=== PATIENT | female | born 1995 | race Caucasian/White ===

== ENCOUNTER 2017-02-08 15:45 | Emergency (ER) | payer OTHER ==
[~2017-02-08] VITALS: Ht 165.1 cm; Wt 118.1 kg
[~2017-02-08 15:45] MED LIST: ACET50TA PO; DOCU10CA PO; IBUP80TA PO; MOM30SS PO; VITAPRTA PO
[2017-02-08 17:45] VITALS: BP 130/69
== END 2017-02-08 17:49 | disposition home or self-care (01) ==
LOC: M ED 15:45
DX: G62.9 Polyneuropathy, unspecified (principal); R20.2 Paresthesia of skin; F41.9 Anxiety disorder, unspecified; F32.9 Major depressive disorder, single episode, unspecified; Z87.891 Personal history of nicotine dependence; Z79.899 Other long term (current) drug therapy; Z88.0 Allergy status to penicillin; Z91.040 Latex allergy status

== ENCOUNTER → 2017-06-14 | Outpatient (CLI) | payer OTHER ==
[2017-06-14 15:27] LABS: ALBUMIN 3.8 GM/DL (3.2-5.2); ALBUMIN/GLOBULIN RATIO 1.09 (1.00-1.93); ALKALINE PHOSPHATASE 105 U/L (45-117); ALT/SGPT 21 U/L (12-78); ANION GAP 4 MEQ/L (8-16); AST/SGOT 13 U/L (7-37); BILIRUBIN,TOTAL 0.4 MG/DL (0.2-1.0); BLOOD UREA NITROGEN 8 MG/DL (7-18); CALCIUM LEVEL 8.9 MG/DL (8.5-10.1); CARBON DIOXIDE LEVEL 30 MEQ/L (21-32); CHLORIDE LEVEL 107 MEQ/L (98-107); GLOMERULAR FILTRATION RATE > 60.0 (>60); GLUCOSE, FASTING 86 MG/DL (70-105); POTASSIUM SERUM 4.1 MEQ/L (3.5-5.1); SODIUM LEVEL 141 MEQ/L (136-145); TOTAL PROTEIN 7.3 GM/DL (6.4-8.2)
== END ==
LOC: M LAB 14:13
PROVIDERS: ATTEND Nurse Practitioner Adult Health
DX: Z13.9 Encounter for screening, unspecified (principal)

== ENCOUNTER 2017-08-14 16:26 | Emergency (ER) | payer OTHER ==
[2017-08-14 18:34] LABS: KETONE, URINE AUTO RFX TRACE mg/dL (NEGATIVE); MUCUS, URINE RFX LARGE (NEGATIVE); NITRITE, URINE AUTO RFX NEGATIVE (NEGATIVE); RBC, URINE AUTO RFX 4 /HPF (0-3); SPECIFIC GRAVITY UR AUTO RFX 1.032 (1.002-1.035); SQUAM EPITHELIAL CELL UR AURFX 2 /HPF (0-6); WBC, URINE AUTO RFX 3 /HPF (0-3)
[2017-08-14 18:39] LABS: BASO % 0.5 % (0.0-1.0); EOS # 0.1 10^3/uL (0.0-0.50); EOS % 0.6 % (0.0-3.0); HEMATOCRIT 40.2 % (36.0-47.0); HEMOGLOBIN 13.3 g/dl (12.0-16.0); IMMATURE GRANULOCYTE % 0.3 % (0-0); LEUKOCYTE ESTERASE UR AUTO RFX 1+ (NEGATIVE); LYMPH # 2.2 10^3/uL (1.5-6.5); LYMPH % 27.2 % (24.0-44.0); MEAN CORPUSCULAR HEMOGLOBIN 29.9 pg (27.0-33.0); MEAN CORPUSCULAR HGB CONC 33.1 g/dl (32.0-36.5); MEAN CORPUSCULAR VOLUME 90.3 fl (80.0-96.0); MONO # 0.5 10^3/uL (0.0-0.8); MONO % 6.5 % (0.0-5.0); NEUTROPHILS # 5.1 10^3/uL (1.8-7.7); NEUTROPHILS % 64.9 % (36.0-66.0); PLATELET COUNT, AUTOMATED 316 10^3/uL (150-450); RED BLOOD COUNT 4.45 10^6/uL (4.00-5.40); RED CELL DISTRIBUTION WIDTH 12.1 % (11.5-14.5); WHITE BLOOD COUNT 7.9 10^3/uL (4.0-10.0)
[2017-08-14 18:44] LABS: HCG, SERUM QUANTITATIVE 117 MIU/ML
== END 2017-08-14 19:20 | disposition home or self-care (01) ==
LOC: M ED 16:26
DX: O26.891 Other specified pregnancy related conditions, first trimester (principal); Z3A.00 Weeks of gestation of pregnancy not specified; Z88.0 Allergy status to penicillin; Z91.040 Latex allergy status
CPT/HCPCS: 84702

== ENCOUNTER → 2017-08-16 | Outpatient (CLI) | payer OTHER ==
[2017-08-16 16:38] LABS: HCG, SERUM QUANTITATIVE 249 MIU/ML
== END ==
LOC: M LAB 15:38
DX: R10.2 Pelvic and perineal pain (principal)
CPT/HCPCS: 84702

== ENCOUNTER 2017-08-18 04:39 | Emergency (ER) | payer OTHER ==
[2017-08-18] MEDS: NS 1,000 ML IV (05:30)
[2017-08-18 05:35] LABS: BASO % 0.4 % (0.0-1.0); EOS % 0.6 % (0.0-3.0); HEMATOCRIT 35.3 % (36.0-47.0); HEMOGLOBIN 11.8 g/dl (12.0-16.0); IMMATURE GRANULOCYTE % 0.3 % (0-0); LYMPH # 2.2 10^3/uL (1.5-6.5); MEAN CORPUSCULAR HEMOGLOBIN 29.8 pg (27.0-33.0); MEAN CORPUSCULAR HGB CONC 33.4 g/dl (32.0-36.5); MEAN CORPUSCULAR VOLUME 89.1 fl (80.0-96.0); MONO # 0.6 10^3/uL (0.0-0.8); MONO % 8.9 % (0.0-5.0); NEUTROPHILS # 4.1 10^3/uL (1.8-7.7); NEUTROPHILS % 58.8 % (36.0-66.0); PLATELET COUNT, AUTOMATED 271 10^3/uL (150-450); RED BLOOD COUNT 3.96 10^6/uL (4.00-5.40); RED CELL DISTRIBUTION WIDTH 12.2 % (11.5-14.5)
[2017-08-18 05:49] LABS: KETONE, URINE AUTO RFX NEGATIVE (NEGATIVE); MUCUS, URINE RFX SMALL (NEGATIVE); NITRITE, URINE AUTO RFX NEGATIVE (NEGATIVE); RBC, URINE AUTO RFX 2 /HPF (0-3); SPECIFIC GRAVITY UR AUTO RFX 1.024 (1.002-1.035); SQUAM EPITHELIAL CELL UR AURFX 1 /HPF (0-6); WBC, URINE AUTO RFX 2 /HPF (0-3)
[2017-08-18 05:50] LABS: LEUKOCYTE ESTERASE UR AUTO RFX TRACE (NEGATIVE)
[2017-08-18 06:00] LABS: HCG, SERUM QUANTITATIVE 516 MIU/ML
[2017-08-18 06:00] LABS: ALBUMIN 3.7 GM/DL (3.2-5.2); ALBUMIN/GLOBULIN RATIO 1.19 (1.00-1.93); ALKALINE PHOSPHATASE 88 U/L (45-117); ALT/SGPT 16 U/L (12-78); ANION GAP 7 MEQ/L (8-16); AST/SGOT 13 U/L (7-37); BILIRUBIN,DIRECT < 0.1 MG/DL (0.0-0.2); BILIRUBIN,TOTAL 0.2 MG/DL (0.2-1.0); BLOOD UREA NITROGEN 12 MG/DL (7-18); CALCIUM LEVEL 8.4 MG/DL (8.5-10.1); CARBON DIOXIDE LEVEL 26 MEQ/L (21-32); CHLORIDE LEVEL 108 MEQ/L (98-107); CREATININE FOR GFR 0.61 MG/DL (0.55-1.02); GLOMERULAR FILTRATION RATE > 60.0 (>60); GLUCOSE, FASTING 96 MG/DL (70-105); LIPASE 196 U/L (73-393); POTASSIUM SERUM 3.7 MEQ/L (3.5-5.1); SODIUM LEVEL 141 MEQ/L (136-145); TOTAL PROTEIN 6.8 GM/DL (6.4-8.2)
== END 2017-08-18 08:12 | disposition home or self-care (01) ==
LOC: M ED 04:39
DX: O99.89 Other specified diseases and conditions complicating pregnancy, childbirth and the puerperium (principal); R10.9 Unspecified abdominal pain; R11.0 Nausea; Z91.040 Latex allergy status; Z88.0 Allergy status to penicillin; Z3A.01 Less than 8 weeks gestation of pregnancy
CPT/HCPCS: 76700

== ENCOUNTER → 2017-08-23 | Outpatient (CLI) | payer OTHER ==
[2017-08-23 20:04] LABS: HCG, SERUM QUANTITATIVE 3382 MIU/ML
== END ==
LOC: M SMT 11:25
DX: R10.32 Left lower quadrant pain (principal)
CPT/HCPCS: 84702

== ENCOUNTER → 2017-08-25 | Outpatient (CLI) | payer OTHER ==
[2017-08-25 20:15] LABS: HCG, SERUM QUANTITATIVE 6485 MIU/ML
== END ==
LOC: M SMT 11:20
DX: R10.32 Left lower quadrant pain (principal)
CPT/HCPCS: 84702

== ENCOUNTER → 2017-10-11 | Outpatient (CLI) | payer OTHER ==
[2017-10-11 17:48] LABS: BASO % 0.5 % (0.0-1.0); EOS % 0.5 % (0.0-3.0); HEMATOCRIT 37.6 % (36.0-47.0); HEMOGLOBIN 12.7 g/dl (12.0-16.0); IMMATURE GRANULOCYTE % 0.5 % (0-3.0); LYMPH # 1.7 10^3/uL (1.5-6.5); LYMPH % 25.7 % (24.0-44.0); MEAN CORPUSCULAR HGB CONC 33.8 g/dl (32.0-36.5); MEAN CORPUSCULAR VOLUME 88.9 fl (80.0-96.0); MONO # 0.4 10^3/uL (0.0-0.8); MONO % 6.3 % (0.0-5.0); NEUTROPHILS # 4.3 10^3/uL (1.8-7.7); NEUTROPHILS % 66.5 % (36.0-66.0); PLATELET COUNT, AUTOMATED 250 10^3/uL (150-450); RED BLOOD COUNT 4.23 10^6/uL (4.00-5.40); RED CELL DISTRIBUTION WIDTH 12.1 % (11.5-14.5); WHITE BLOOD COUNT 6.5 10^3/uL (4.0-10.0)
[2017-10-11 22:19] LABS: CHLAMYDIA DNA AMPLIFICATION NEGATIVE (NEGATIVE); GC DNA AMPLIFICATION NEGATIVE (NEGATIVE)
[2017-10-13 09:29] LABS: RUBELLA IgG QUALITATIVE IMMUNE (IMMUNE)
[2017-10-13 09:38] LABS: HBsAg Prenatal NEGATIVE (NEGATIVE)
[2017-10-13 09:59] LABS: HEPATITIS C VIRUS ABY INDEX 0.1 INDEX (<0.8)
[2017-10-13 10:00] LABS: HIV 1&2 SCREEN CENTAUR NEGATIVE (NEGATIVE)
== END ==
LOC: M SMT 14:36
DX: Z34.81 Encounter for supervision of other normal pregnancy, first trimester (principal); Z3A.08 8 weeks gestation of pregnancy
CPT/HCPCS: 86762

== ENCOUNTER → 2017-11-19 | Outpatient (CLI) | payer OTHER | LOC: M RAD 14:49 | DX: Z34.82 Encounter for supervision of other normal pregnancy, second trimester (principal) | CPT/HCPCS: 76817 ==

== ENCOUNTER 2017-11-29 19:37 | Emergency (ER) | payer OTHER ==
[2017-11-29] MEDS: NS 1,000 ML IV (20:15)
[2017-11-29 20:44] LABS: BASO % 0.4 % (0.0-1.0); EOS % 0.3 % (0.0-3.0); HEMATOCRIT 34.4 % (36.0-47.0); HEMOGLOBIN 11.8 g/dl (12.0-15.5); IMMATURE GRANULOCYTE % 0.3 % (0-3.0); LYMPH # 1.7 10^3/uL (1.5-6.5); LYMPH % 23.3 % (24.0-44.0); MEAN CORPUSCULAR HEMOGLOBIN 30.8 pg (27.0-33.0); MEAN CORPUSCULAR HGB CONC 34.3 g/dl (32.0-36.5); MEAN CORPUSCULAR VOLUME 89.8 fl (80.0-96.0); MONO # 0.5 10^3/uL (0.0-0.8); MONO % 7.1 % (0.0-5.0); NEUTROPHILS % 68.6 % (36.0-66.0); PLATELET COUNT, AUTOMATED 228 10^3/uL (150-450); RED BLOOD COUNT 3.83 10^6/uL (4.00-5.40); RED CELL DISTRIBUTION WIDTH 12.3 % (11.5-14.5); WHITE BLOOD COUNT 7.2 10^3/uL (4.0-10.0)
[2017-11-29 21:05] LABS: ANION GAP 6 MEQ/L (8-16); BLOOD UREA NITROGEN 7 MG/DL (7-18); CARBON DIOXIDE LEVEL 23 MEQ/L (21-32); CHLORIDE LEVEL 110 MEQ/L (98-107); CREATININE FOR GFR 0.53 MG/DL (0.55-1.30); GLOMERULAR FILTRATION RATE > 60.0 (>60); GLUCOSE, FASTING 83 MG/DL (70-100); POTASSIUM SERUM 3.8 MEQ/L (3.5-5.1); SODIUM LEVEL 139 MEQ/L (136-145)
[2017-11-29 23:22] LABS: KETONE, URINE AUTO RFX NEGATIVE (NEGATIVE); MUCUS, URINE RFX LARGE (NEGATIVE); NITRITE, URINE AUTO RFX NEGATIVE (NEGATIVE); RBC, URINE AUTO RFX 2 /HPF (0-3); SQUAM EPITHELIAL CELL UR AURFX 3 /HPF (0-6); WBC, URINE AUTO RFX 7 /HPF (0-3)
[2017-11-29 23:23] LABS: LEUKOCYTE ESTERASE UR AUTO RFX 2+ (NEGATIVE)
[2017-11-30 03:27] LABS: BEDSIDE GLUCOSE 116 MG/DL (70-105)
== END 2017-11-30 00:36 | disposition home or self-care (01) ==
LOC: M ED 11-30 00:36
DX: R55 Syncope and collapse (principal); Z88.0 Allergy status to penicillin; Z91.040 Latex allergy status
CPT/HCPCS: 93005

== ENCOUNTER 2017-12-03 01:53 | Emergency (ER) | payer OTHER ==
[2017-12-03] MEDS: AZITHROMYCIN 250 MG TAB PO (02:48)
== END 2017-12-03 03:12 | disposition home or self-care (01) ==
LOC: M ED 01:53
DX: O99.512 Diseases of the respiratory system complicating pregnancy, second trimester (principal); J02.9 Acute pharyngitis, unspecified; Z3A.20 20 weeks gestation of pregnancy; Q60.0 Renal agenesis, unilateral; Z91.040 Latex allergy status; Z88.0 Allergy status to penicillin
CPT/HCPCS: 70360

== ENCOUNTER → 2017-12-06 | Outpatient (CLI) | payer OTHER | LOC: M RAD 15:12 | DX: Z34.82 Encounter for supervision of other normal pregnancy, second trimester (principal); Z3A.20 20 weeks gestation of pregnancy | CPT/HCPCS: 76816 ==

== ENCOUNTER 2017-12-14 08:32 | Outpatient (CLI) | payer OTHER ==
[2017-12-14 12:16] LABS: APPEARANCE, URINE CLEAR (CLEAR); BACTERIA, URINE AUTO NEGATIVE (NEGATIVE); BILIRUBIN, URINE AUTO NEGATIVE (NEGATIVE); BLOOD, URINE BLOOD NEGATIVE (NEGATIVE); COLOR, URINE COLORLESS (YELLOW); GLUCOSE, URINE (UA) AUTO NEGATIVE (NEGATIVE); KETONE, URINE AUTO NEGATIVE (NEGATIVE); LEUKOCYTE ESTERASE, URINE AUTO NEGATIVE (NEGATIVE); NITRITE, URINE AUTO NEGATIVE (NEGATIVE); PROTEIN, URINE AUTO NEGATIVE (NEGATIVE); RBC, URINE AUTO 0 /HPF (0-3); SPECIFIC GRAVITY URINE AUTO 1.001 (1.002-1.035); SQUAMOUS EPITHELIAL CELL UR AU 0 /HPF (0-6); UROBILINOGEN, URINE AUTO 0.2 mg/dL (0.0-2.0); WBC, URINE AUTO 0 /HPF (0-3)
[2017-12-14 14:02] LABS: CHLAMYDIA DNA AMPLIFICATION NEGATIVE (NEGATIVE); GC DNA AMPLIFICATION NEGATIVE (NEGATIVE)
== END 2017-12-14 13:58 | disposition home or self-care (01) ==
LOC: M LDO 08:32
DX: O26.892 Other specified pregnancy related conditions, second trimester (principal); R10.9 Unspecified abdominal pain; N89.8 Other specified noninflammatory disorders of vagina; Z3A.21 21 weeks gestation of pregnancy
CPT/HCPCS: 76815

== ENCOUNTER 2018-01-01 22:51 | Outpatient (CLI) | payer OTHER | END 2018-01-02 01:06 | disposition home or self-care (01) | LOC: M LDO 22:51 | DX: O36.8120 Decreased fetal movements, second trimester, not applicable or unspecified (principal); Z3A.24 24 weeks gestation of pregnancy; Z88.0 Allergy status to penicillin; Z91.040 Latex allergy status | CPT/HCPCS: 76815 ==

== ENCOUNTER 2018-01-11 04:56 | Outpatient (CLI) | payer OTHER | END 2018-01-11 05:58 | disposition home or self-care (01) | LOC: M LDO 04:56 | DX: O26.892 Other specified pregnancy related conditions, second trimester (principal); Z3A.25 25 weeks gestation of pregnancy | CPT/HCPCS: 59025 ==

== ENCOUNTER 2018-01-27 20:49 | Outpatient (CLI) | payer OTHER ==
[2018-01-27 21:37] LABS: BEDSIDE GLUCOSE 103 MG/DL (70-105)
[2018-01-27 22:04] LABS: HEMATOCRIT 32.6 % (36.0-47.0); HEMOGLOBIN 10.6 g/dl (12.0-15.5); MEAN CORPUSCULAR HEMOGLOBIN 29.4 pg (27.0-33.0); MEAN CORPUSCULAR HGB CONC 32.5 g/dl (32.0-36.5); MEAN CORPUSCULAR VOLUME 90.6 fl (80.0-96.0); PLATELET COUNT, AUTOMATED 272 10^3/uL (150-450); RED CELL DISTRIBUTION WIDTH 11.9 % (11.5-14.5); WHITE BLOOD COUNT 10.7 10^3/uL (4.0-10.0)
== END 2018-01-27 23:40 | disposition home or self-care (01) ==
LOC: M LDO 20:49
DX: O99.89 Other specified diseases and conditions complicating pregnancy, childbirth and the puerperium (principal); Z3A.27 27 weeks gestation of pregnancy; R55 Syncope and collapse; W19.XXXA Unspecified fall, initial encounter
CPT/HCPCS: 59025

== ENCOUNTER 2018-02-11 18:10 | Outpatient (CLI) | payer OTHER | END 2018-02-11 18:51 | disposition home or self-care (01) | LOC: M LDO 18:10 | DX: O26.853 Spotting complicating pregnancy, third trimester (principal); Z3A.29 29 weeks gestation of pregnancy | CPT/HCPCS: 59025 ==

== ENCOUNTER → 2018-02-25 | Outpatient (CLI) | payer OTHER ==
[2018-02-25 14:57] LABS: BASO % 0.2 % (0.0-1.0); EOS % 0.3 % (0.0-3.0); HEMATOCRIT 32.4 % (36.0-47.0); HEMOGLOBIN 10.2 g/dl (12.0-15.5); IMMATURE GRANULOCYTE % 0.8 % (0-3.0); LYMPH # 1.5 10^3/uL (1.5-6.5); LYMPH % 15.9 % (24.0-44.0); MEAN CORPUSCULAR HEMOGLOBIN 28.2 pg (27.0-33.0); MEAN CORPUSCULAR HGB CONC 31.5 g/dl (32.0-36.5); MEAN CORPUSCULAR VOLUME 89.5 fl (80.0-96.0); MONO # 0.7 10^3/uL (0.0-0.8); NEUTROPHILS # 7.1 10^3/uL (1.8-7.7); NEUTROPHILS % 75.8 % (36.0-66.0); PLATELET COUNT, AUTOMATED 259 10^3/uL (150-450); RED BLOOD COUNT 3.62 10^6/uL (4.00-5.40); RED CELL DISTRIBUTION WIDTH 12.5 % (11.5-14.5); WHITE BLOOD COUNT 9.3 10^3/uL (4.0-10.0)
[2018-02-25 15:13] LABS: GLUCOSE CHALLENGE TEST 1 HOUR 110 MG/DL (LESS THAN 140)
== END ==
LOC: M LAB 13:34
DX: Z36.89 Encounter for other specified antenatal screening (principal); Z3A.00 Weeks of gestation of pregnancy not specified
CPT/HCPCS: 82950

== ENCOUNTER → 2018-03-01 | Outpatient (CLI) | payer OTHER | LOC: M RAD 10:10 | DX: O26.843 Uterine size-date discrepancy, third trimester (principal); Z3A.32 32 weeks gestation of pregnancy | CPT/HCPCS: 76816 ==

== ENCOUNTER 2018-03-06 19:19 | Outpatient (CLI) | payer OTHER | END 2018-03-06 21:30 | disposition home or self-care (01) | LOC: M LDO 19:19 | DX: O36.8130 Decreased fetal movements, third trimester, not applicable or unspecified (principal); Z3A.33 33 weeks gestation of pregnancy; O99.343 Other mental disorders complicating pregnancy, third trimester; F31.9 Bipolar disorder, unspecified; F41.9 Anxiety disorder, unspecified | CPT/HCPCS: 59025 ==

== ENCOUNTER → 2018-03-17 | Outpatient (REF) | payer OTHER | LOC: M LAB REF 17:16 | DX: Z36.89 Encounter for other specified antenatal screening (principal); Z3A.00 Weeks of gestation of pregnancy not specified | CPT/HCPCS: 87081 ==

== ENCOUNTER → 2018-04-07 | Outpatient (CLI) | payer OTHER | LOC: M SMT 12:56 | DX: Z36.9 Encounter for antenatal screening, unspecified (principal); O26.843 Uterine size-date discrepancy, third trimester; Z3A.39 39 weeks gestation of pregnancy | CPT/HCPCS: 76815 ==

== ENCOUNTER → 2018-04-12 | Outpatient (CLI) | payer OTHER | LOC: M LDO 00:37 | DX: O47.1 False labor at or after 37 completed weeks of gestation (principal); Z3A.38 38 weeks gestation of pregnancy | CPT/HCPCS: 59025 ==

== ENCOUNTER 2018-04-14 16:25 | Inpatient (IN) | payer OTHER ==
[2018-04-14] MEDS ORDERED: OXYTOCIN 30 UNITS IN 0.9% NaCl 500ML IV BAG (J2590) As Ordered (17:32)
[2018-04-14 17:38] LABS: HEMATOCRIT 32.7 % (36.0-47.0); MEAN CORPUSCULAR HEMOGLOBIN 25.6 pg (27.0-33.0); MEAN CORPUSCULAR HGB CONC 30.6 g/dl (32.0-36.5); MEAN CORPUSCULAR VOLUME 83.8 fl (80.0-96.0); PLATELET COUNT, AUTOMATED 272 10^3/uL (150-450); RED CELL DISTRIBUTION WIDTH 14.5 % (11.5-14.5); WHITE BLOOD COUNT 9.5 10^3/uL (4.0-10.0)
[2018-04-14 18:16] LABS: ALT/SGPT 20 U/L (12-78); AST/SGOT 21 U/L (7-37); BILIRUBIN,TOTAL 0.2 MG/DL (0.2-1.0); CREATININE FOR GFR 0.56 MG/DL (0.55-1.30); GLOMERULAR FILTRATION RATE > 60.0 (>60); LDH LACTATE DEHYDROGENASE 242 U/L (84-246); URIC ACID 4.3 MG/DL (2.6-6.0)
[2018-04-14 18:51] LABS: TOTAL PROTEIN,RANDOM URINE 35.5 MG/DL (0.0-12.0)
[2018-04-14] MEDS ORDERED: OXYTOCIN DRIP 30 UNITS in APPROPRIATE DILUENT 1 EA IV (20:21)
[2018-04-14] MEDS ORDERED: IBUPROFEN 800 MG TAB PO (20:30)
[2018-04-14] MEDS ORDERED: RHOGAM 300 MCG (1500 IU) INJ (J2790) IM (20:30)
[2018-04-14] MEDS ORDERED: DIBUCAINE 1% OINTMENT 30GM TOP (20:30)
[2018-04-14] MEDS ORDERED: MEASLES,MUMPS,RUBELLA VACCINE INJ (MMR-II) (90707) SC (20:30)
[2018-04-14] MEDS ORDERED: DOCUSATE SODIUM 100 MG CAP PO (20:30)
[2018-04-14] MEDS ORDERED: ACETAMINOPHEN 500 MG TAB PO (20:30)
[2018-04-14] MEDS ORDERED: ANUSOL HC CREAM 30GM TOP (20:30)
[2018-04-15] MEDS: PRENATAL VITAMINS CHEWABLE TABLET PO (08:53)
[2018-04-16] MEDS: PRENATAL VITAMINS CHEWABLE TABLET PO (08:53)
== END 2018-04-16 15:00 | disposition home or self-care (01) | DRG 560 ==
LOC: M LDI 16:25 → M OBS 21:30
PROC: 10E0XZZ Delivery of Products of Conception, External Approach (ICD-10-PCS; principal; 2018-04-14)
DX: O80 Encounter for full-term uncomplicated delivery (principal); Z37.0 Single live birth; Z3A.38 38 weeks gestation of pregnancy

== ENCOUNTER 2018-06-25 14:58 | Emergency (ER) | payer OTHER | END 2018-06-25 16:57 | disposition home or self-care (01) | LOC: M ED 14:58 | DX: K04.7 Periapical abscess without sinus (principal); F33.9 Major depressive disorder, recurrent, unspecified; F41.9 Anxiety disorder, unspecified; Q60.2 Renal agenesis, unspecified; Z88.0 Allergy status to penicillin; Z91.040 Latex allergy status | CPT/HCPCS: 99283 ==

== ENCOUNTER → 2018-08-11 | Outpatient (CLI) | payer OTHER ==
[~2018-08-11] MED LIST changes: -ACET50TA PO; +CLEO300C2 PO; +IBUP-1114 PO; +KETO10TAB PO; +LIDVISCBTL SSP; +MAPA500T2 PO; +PRENTAB9 PO; +TUMS500C PO; +ZITHTAB PO
== END ==
LOC: M LAB 17:32
PROVIDERS: ATTEND Specialist
DX: N91.2 Amenorrhea, unspecified (principal)

== ENCOUNTER 2018-09-14 06:26 | Emergency (ER) | payer OTHER ==
[2018-09-14] MEDS ORDERED: MECLIZINE 25 MG TABLET PO ONE (07:15)
[2018-09-14 07:46] LABS: BASO % 0.5 % (0.0-1.0); EOS # 0.1 10^3/uL (0.0-0.50); EOS % 0.8 % (0.0-3.0); HEMATOCRIT 38.2 % (36.0-47.0); HEMOGLOBIN 12.3 g/dl (12.0-15.5); LYMPH # 1.7 10^3/uL (1.5-6.5); LYMPH % 22.9 % (24.0-44.0); MEAN CORPUSCULAR HEMOGLOBIN 28.4 pg (27.0-33.0); MEAN CORPUSCULAR HGB CONC 32.2 g/dl (32.0-36.5); MEAN CORPUSCULAR VOLUME 88.2 fl (80.0-96.0); MONO # 0.6 10^3/uL (0.0-0.8); MONO % 7.5 % (0.0-5.0); NEUTROPHILS % 67.9 % (36.0-66.0); PLATELET COUNT, AUTOMATED 309 10^3/uL (150-450); RED BLOOD COUNT 4.33 10^6/uL (4.00-5.40); WHITE BLOOD COUNT 7.3 10^3/uL (4.0-10.0)
[2018-09-14 08:12] LABS: HCG, SERUM QUALITATIVE NEGATIVE (NEGATIVE)
[2018-09-14] MEDS: diazePAM 5 MG TAB PO ONE ×2 (08:15→08:46)
[2018-09-14 08:25] LABS: BLOOD UREA NITROGEN 14 MG/DL (7-18); CALCIUM LEVEL 8.7 MG/DL (8.5-10.1); CARBON DIOXIDE LEVEL 27 MEQ/L (21-32); CHLORIDE LEVEL 106 MEQ/L (98-107); CREATININE FOR GFR 0.67 MG/DL (0.55-1.30); FREE T4 1.05 NG/DL (0.76-1.46); GLOMERULAR FILTRATION RATE > 60.0 (>60); GLUCOSE, FASTING 104 MG/DL (70-100); POTASSIUM SERUM 4.5 MEQ/L (3.5-5.1); SODIUM LEVEL 141 MEQ/L (136-145)
[2018-09-14] MEDS ORDERED: MECL-68 PO (09:14)
--- NOTE | 2018-09-14 09:23 | REP ---
CT Head without contrast HISTORY: Dizziness COMPARISON: None There is no intraparenchymal hemorrhage, acute infarct, mass or midline shift. The ventricular system is normal in appearance. A 2.5 cm arachnoid cyst is present in the left middle cranial fossa. There is minimal mass effect on the adjacent anterior left temporal lobe There is no extra cerebral collection. There is no fracture. The visualized sinuses are clear. IMPRESSION: 1. There is no acute intracranial lesion. 2. Left middle cranial fossa arachnoid cyst. Electronically Signed by Mariano Proctor MD 09/14/2018 09:14 A
[2018-09-14 09:55] VITALS: BP 101/56
--- NOTE | 2018-09-14 09:58 | ED PDOC ---
Post-Departure Follow-Up nael gamble faxed formal report of ct head for fu Harvey Fowler MD Sep 14, 2018 09:58
--- NOTE | 2018-09-14 17:08 | ECGEPIP ---
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
== END 2018-09-14 09:56 | disposition home or self-care (01) ==
LOC: M ED 06:26
DX: H81.399 Other peripheral vertigo, unspecified ear (principal); R11.2 Nausea with vomiting, unspecified; R51 Headache; Z88.0 Allergy status to penicillin; Z91.040 Latex allergy status

== ENCOUNTER 2018-11-15 13:02 | Emergency (ER) | payer MEDICAID, OTHER, SELFPAY ==
[~2018-11-15] VITALS: Ht 167.6 cm; Wt 149.6 kg
[~2018-11-15 13:02] MED LIST changes: +MECL-68 PO
--- NOTE | 2018-11-15 13:57 | REP ---
PA and lateral chest: Comparison is 01/06/2012. The lung antunez are clear. The cardiac size is normal. The mariah, mediastinum, and skeletal structures are unremarkable. Impression: Negative PA and lateral chest. There is no interval change. Electronically Signed by Murali Lopez MD 11/15/2018 01:48 P
[2018-11-15 14:16] LABS: BASO % 0.5 % (0.0-1.0); EOS % 0.5 % (0.0-3.0); HEMATOCRIT 37.5 % (36.0-47.0); LYMPH # 1.7 10^3/uL (1.5-6.5); LYMPH % 21.4 % (24.0-44.0); MEAN CORPUSCULAR HEMOGLOBIN 27.7 pg (27.0-33.0); MEAN CORPUSCULAR VOLUME 86.6 fl (80.0-96.0); MONO # 0.6 10^3/uL (0.0-0.8); MONO % 7.3 % (0.0-5.0); NEUTROPHILS # 5.7 10^3/uL (1.8-7.7); NEUTROPHILS % 70.1 % (36.0-66.0); PLATELET COUNT, AUTOMATED 313 10^3/uL (150-450); RED BLOOD COUNT 4.33 10^6/uL (4.00-5.40); WHITE BLOOD COUNT 8.1 10^3/uL (4.0-10.0)
[2018-11-15 14:34] LABS: INR 1.05; PROTHROMBIN TIME 13.8 SECONDS (12.1-14.4)
[2018-11-15 14:44] LABS: ALBUMIN 3.5 GM/DL (3.2-5.2); ALT/SGPT 20 U/L (12-78); BILIRUBIN,DIRECT < 0.1 MG/DL (0.0-0.2); BILIRUBIN,TOTAL 0.2 MG/DL (0.2-1.0); BLOOD UREA NITROGEN 13 MG/DL (7-18); CARBON DIOXIDE LEVEL 26 MEQ/L (21-32); CHLORIDE LEVEL 108 MEQ/L (98-107); CPK CREATINE PHOSPHOKINASE 197 U/L (26-192); CREATININE FOR GFR 0.65 MG/DL (0.55-1.30); FREE T4 1.03 NG/DL (0.76-1.46); GLOMERULAR FILTRATION RATE > 60.0 (>60); GLUCOSE, FASTING 94 MG/DL (70-100); LIPASE 149 U/L (73-393); MB/CK RELATIVE INDEX 0.51 (< OR =4); NT-PRO BNP 110 PG/ML (<125); POTASSIUM SERUM 4.4 MEQ/L (3.5-5.1); SODIUM LEVEL 139 MEQ/L (136-145); TOTAL PROTEIN 6.9 GM/DL (6.4-8.2); TROPONIN I < 0.02 NG/ML (< 0.10)
[2018-11-15] MEDS ORDERED: FUROSEMIDE 20 MG/2 ML VIAL (J1940) IV ONE (15:15)
[2018-11-15 15:48] VITALS: BP 114/78
--- NOTE | 2018-11-15 21:39 | ECGEPIP ---
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
== END 2018-11-15 16:00 | disposition home or self-care (01) ==
LOC: M ED 13:02
DX: R60.9 Edema, unspecified (principal); R06.02 Shortness of breath; Z88.0 Allergy status to penicillin; Z91.040 Latex allergy status; Q60.0 Renal agenesis, unilateral
CPT/HCPCS: 71046; 80048; 80076; 81025; 82550; 82553; 83690; 83880; 84439; 84443; 84484; 85025; 85610; 93005; 93041; 94760; 96374; 99285; J1940

== ENCOUNTER 2018-11-30 22:16 | Emergency (ER) | payer SELFPAY ==
[~2018-11-30] VITALS: Ht 167.6 cm; Wt 153.7 kg
[2018-12-01] MEDS ORDERED: TETANUS/DIPHTHERIA TOX ADSORB ADULT 0.5ML SYR/VIAL (90714) IM ONE (01:00)
[2018-12-01 01:07] VITALS: BP 111/61
== END 2018-12-01 01:10 | disposition home or self-care (01) ==
LOC: M ED 22:16
DX: S91.332A Puncture wound without foreign body, left foot, initial encounter (principal); W22.8XXA Striking against or struck by other objects, initial encounter; Y92.099 Unspecified place in other non-institutional residence as the place of occurrence of the external cause; Y93.9 Activity, unspecified; Y99.9 Unspecified external cause status; Z88.0 Allergy status to penicillin; Z91.040 Latex allergy status

== ENCOUNTER → 2018-12-22 | Outpatient (CLI) | payer OTHER, SELFPAY | LOC: M LAB 16:06 | PROVIDERS: ATTEND Advanced Practice Midwife | DX: N91.2 Amenorrhea, unspecified (principal) ==

== ENCOUNTER 2019-02-01 19:01 | Emergency (ER) | payer MEDICAID, SELFPAY ==
[~2019-02-01] VITALS: Ht 167.6 cm; Wt 155.3 kg
[2019-02-01] MEDS ORDERED: PREN29TA4 PO (19:07)
--- NOTE | 2019-02-01 20:22 | REPVR ---
EXAM: US , Transvaginal EXAM DATE/TIME: 02/01/2019 7:47 PM CLINICAL HISTORY: 23 years old, female; complicated by abdominal or pelvic pain; Lower; First trimester; Gestational age or lmp: 7; ; Additional info: Abdominal pain, R/O ectopic TECHNIQUE: Imaging protocol: Real-time transvaginal obstetrical ultrasound of the maternal pelvis and a first trimester with image documentation. Transvaginal imaging was used for better evaluation of the fetus and adnexa. COMPARISON: US OBS FOLL UP OR REPEAT EACH GES 04/07/2018 1:11 PM FINDINGS: GESTATION: Gestation: No evidence of a gestational sac. No yolk sac. No pole. Heart rate: Absent cardiac activity MATERNAL: Uterus: Uterus measures 9.7 x 4.8 x 7.2 cm. endometrial echo complex measures 12 mm. Left and right adnexa: 2 left adnexal cysts measure 3.5 x 4.3 x 3.7 cm. Otherwise unremarkable. Intraperitoneal: Moderate free fluid in the cul-de-sac. IMPRESSION: Empty uterus in a patient who is reportedly present based on LMP of 12/14/2018. Finding may indicate very early IUP prior to visualization of a gestational sac or fetus. Correlation with serial beta-hCG levels and follow ultrasound recommended in order to exclude ectopic verses very early or early failure. Electronically signed by: Guero Carreno On 02/01/2019 20:22:45 PM
[2019-02-01 21:31] LABS: BASO % 0.5 % (0.0-1.0); EOS # 0.1 10^3/uL (0.0-0.50); EOS % 0.8 % (0.0-3.0); HEMATOCRIT 36.9 % (36.0-47.0); HEMOGLOBIN 11.9 g/dl (12.0-15.5); LYMPH # 2.6 10^3/uL (1.5-6.5); LYMPH % 33.5 % (24.0-44.0); MEAN CORPUSCULAR HEMOGLOBIN 28.2 pg (27.0-33.0); MEAN CORPUSCULAR HGB CONC 32.2 g/dl (32.0-36.5); MEAN CORPUSCULAR VOLUME 87.4 fl (80.0-96.0); MONO # 0.6 10^3/uL (0.0-0.8); NEUTROPHILS # 4.5 10^3/uL (1.8-7.7); NEUTROPHILS % 56.9 % (36.0-66.0); PLATELET COUNT, AUTOMATED 350 10^3/uL (150-450); RED BLOOD COUNT 4.22 10^6/uL (4.00-5.40); WHITE BLOOD COUNT 7.9 10^3/uL (4.0-10.0)
[2019-02-01 21:54] LABS: BLOOD UREA NITROGEN 13 MG/DL (7-18); CALCIUM LEVEL 8.6 MG/DL (8.5-10.1); CARBON DIOXIDE LEVEL 23 MEQ/L (21-32); CHLORIDE LEVEL 109 MEQ/L (98-107); CREATININE FOR GFR 0.72 MG/DL (0.55-1.30); GLOMERULAR FILTRATION RATE > 60.0 (>60); GLUCOSE, FASTING 87 MG/DL (70-100); HCG, SERUM QUANTITATIVE 60 MIU/ML; SODIUM LEVEL 142 MEQ/L (136-145)
[2019-02-01 23:01] VITALS: BP 123/72
== END 2019-02-01 23:08 | disposition home or self-care (01) ==
LOC: M ED 19:01
DX: R10.2 Pelvic and perineal pain (principal); Z32.01 Encounter for pregnancy test, result positive; Z87.42 Personal history of other diseases of the female genital tract; Z90.5 Acquired absence of kidney; Z88.0 Allergy status to penicillin; Z91.040 Latex allergy status

== ENCOUNTER → 2019-02-05 | Outpatient (CLI) | payer MEDICAID ==
[~2019-02-05] MED LIST changes: +PREN29TA4 PO
== END ==
LOC: M LAB 18:18
PROVIDERS: ATTEND Physician Assistant
DX: R10.9 Unspecified abdominal pain (principal)

== ENCOUNTER → 2019-04-12 | Outpatient (CLI) | payer OTHER ==
--- NOTE | 2019-04-12 10:31 | REP ---
OB ULTRASOUND: Real-time sonographic evaluation of the gravid uterus performed. There is a single living intrauterine gestation with an estimated gestational age 13 weeks 3 days based on the first ultrasound with EDC 10/15/2019. Today's measurements indicate appropriate growth. Biometry and Growth: BPD 25 mm = 14 weeks, 1 day 88th percentile HC 98 mm = 14 weeks 4 days, 94th percentile AC 68 mm = 13 weeks 3 days, 52nd percentile FL 12 mm = 13 weeks 4 days, 57th percentile HC/AC ratio 1.44 is above the normal range of 1.11 to 1.30. Estimated weight 80 grams 48th percentile. There is no subchorionic hemorrhage. No maternal or adnexa region abnormalities are seen. heart rate: 155 beats per minute. position: Posterior with no evidence of previa. Electronically Signed by Murali Bright MD 04/13/2019 08:06 A
== END ==
LOC: M RAD 09:26
PROVIDERS: ATTEND Advanced Practice Midwife
DX: O20.0 Threatened abortion (principal); Z3A.14 14 weeks gestation of pregnancy

== ENCOUNTER → 2019-05-16 | Outpatient (CLI) | payer OTHER ==
--- NOTE | 2019-05-16 18:29 | REP ---
Clinical: Anatomical evaluation. Comparison: 04/12/2019 . Findings: Examination demonstrates a single live intrauterine in cephalic presentation. motion is identified by technologist. Placenta is noted posterior and grade zero without evidence for placenta previa or abruption. Amniotic fluid volume is normal. Cervix measures 3.7 cm in length and appears closed. No evidence for nuchal cord. Gestational age by LMP 19 weeks 6 days with XOCHILT 10/04/2019 . Gestational age by current measurements 18 weeks 5 days with XOCHILT 10/12/2019 . FHR equals 150 beats per minute. BPD 4.2 cm 18 weeks 4 days HC 15.2 cm 18 weeks 1 day AC 13.9 cm 19 weeks 2 days FL 2.7 cm 18 weeks 2 days HL 2.8 cm 19 weeks 1 day HC/AC ratio 1.09 Estimated weight 257 grams ( 68 percentile). Anatomical assessment demonstrates normal structures including cranium, cavum, facial features, lungs, four-chamber heart, diaphragm, stomach, cord insertion/three-vessel cord, kidneys/bladder, and extremities. Limited evaluation of the cord plexus, posterior fossa, facial features, cardiac ventricular outflow tracts, and spine. Impression: Single live intrauterine in cephalic presentation demonstrating appropriate interval growth. Anatomical limitations may warrant reevaluation and follow-up. Electronically Signed by David Medrano MD 05/16/2019 06:20 P
== END ==
LOC: M RAD 08:21
PROVIDERS: ATTEND Obstetrics & Gynecology
DX: Z34.82 Encounter for supervision of other normal pregnancy, second trimester (principal); Z3A.18 18 weeks gestation of pregnancy

== ENCOUNTER → 2019-05-31 | Outpatient (CLI) | payer OTHER ==
--- NOTE | 2019-06-01 08:00 | REP ---
Clinical: Anatomical evaluation. Comparison: 05/16/2019 . Findings: Examination demonstrates a single live intrauterine in breech presentation. motion is identified by technologist. Placenta is noted posterior and grade zero without evidence for placenta previa or abruption. Amniotic fluid volume is normal. Cervix measures 3.8 cm in length and appears closed. Nuchal cord cannot be excluded. Gestational age by LMP 22 weeks 0 days with XOCHILT 10/04/2019 . Gestational age by current measurements 20 weeks 3 days with XOCHILT 10/15/2019 . FHR equals 153 beats per minute. Estimated weight 372 grams ( 8th percentile based on age by LMP ). Anatomical assessment demonstrates normal structures including cranium, choroid plexus, cavum, cerebellum/posterior fossa, lungs, four-chamber heart, stomach, cord insertion/three-vessel cord, bladder, and extremities. Limited evaluation of the facial features, cardiac ventricular outflow tracts, diaphragm, kidneys and spine due to positioning. Impression: 1. Single live intrauterine in breech presentation demonstrating appropriate interval growth when compared with first ultrasound. 2. Nuchal cord cannot be excluded. 3. Anatomical limitations as noted above. 4. 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 Head circumference is within normal range although cephalic index equals 0.62 with normal range 0.70 - 0.86 and follow up may be warranted. Electronically Signed by David Medrano MD 06/01/2019 07:52 A
== END ==
LOC: M RAD 15:11
PROVIDERS: ATTEND Obstetrics & Gynecology
DX: Z34.82 Encounter for supervision of other normal pregnancy, second trimester (principal)

== ENCOUNTER → 2019-07-12 | Outpatient (CLI) | payer OTHER ==
[2019-07-12 18:40] LABS: BASO # 0.1 10^3/uL (0.0-0.2); BASO % 0.5 % (0.0-1.0); EOS % 0.3 % (0.0-3.0); HEMATOCRIT 36.5 % (36.0-47.0); HEMOGLOBIN 11.2 g/dl (12.0-15.5); LYMPH % 21.5 % (24.0-44.0); MEAN CORPUSCULAR HEMOGLOBIN 28.3 pg (27.0-33.0); MEAN CORPUSCULAR HGB CONC 30.7 g/dl (32.0-36.5); MEAN CORPUSCULAR VOLUME 92.2 fl (80.0-96.0); MONO # 0.6 10^3/uL (0.0-0.8); MONO % 6.7 % (0.0-5.0); NEUTROPHILS # 6.4 10^3/uL (1.5-8.5); NEUTROPHILS % 70.3 % (36.0-66.0); PLATELET COUNT, AUTOMATED 335 10^3/uL (150-450); RED BLOOD COUNT 3.96 10^6/uL (4.00-5.40); WHITE BLOOD COUNT 9.1 10^3/uL (4.0-10.0)
[2019-07-12 23:02] LABS: CHLAMYDIA DNA AMPLIFICATION NEGATIVE (NEGATIVE); GC DNA AMPLIFICATION NEGATIVE (NEGATIVE)
[2019-07-14 10:59] LABS: HEPATITIS C VIRUS ABY INDEX 0.1 INDEX (<0.8); HIV 1&2 SCREEN CENTAUR NEGATIVE (NEGATIVE); RUBELLA IgG QUALITATIVE IMMUNE (IMMUNE)
== END ==
LOC: M PLALAB 12:23
PROVIDERS: ATTEND Advanced Practice Midwife
DX: Z34.80 Encounter for supervision of other normal pregnancy, unspecified trimester (principal); Z3A.00 Weeks of gestation of pregnancy not specified

== ENCOUNTER → 2019-08-10 | Outpatient (REF) | payer OTHER | LOC: M SFHCWAGY 13:29 | PROVIDERS: ATTEND Advanced Practice Midwife | DX: O99.213 Obesity complicating pregnancy, third trimester (principal) ==

== ENCOUNTER 2019-09-11 14:13 | Emergency (ER) | payer OTHER ==
[~2019-09-11] VITALS: Ht 165.1 cm; Wt 173.0 kg
[~2019-09-11 14:13] MED LIST changes: -MECL-68 PO; +MECL1TAB31 PO
[2019-09-11 17:30] LABS: BASO % 0.2 % (0.0-1.0); EOS % 0.1 % (0.0-3.0); HEMATOCRIT 38.1 % (36.0-47.0); LYMPH # 0.8 10^3/uL (1.5-5.0); LYMPH % 7.5 % (24.0-44.0); MEAN CORPUSCULAR HEMOGLOBIN 27.7 pg (27.0-33.0); MEAN CORPUSCULAR HGB CONC 31.5 g/dl (32.0-36.5); MONO # 0.2 10^3/uL (0.0-0.8); MONO % 1.4 % (0.0-5.0); NEUTROPHILS # 9.4 10^3/uL (1.5-8.5); NEUTROPHILS % 90.4 % (36.0-66.0); PLATELET COUNT, AUTOMATED 282 10^3/uL (150-450); RED BLOOD COUNT 4.33 10^6/uL (4.00-5.40); WHITE BLOOD COUNT 10.4 10^3/uL (4.0-10.0)
[2019-09-11] MEDS ORDERED: NS 1,000 ML IV ONE (17:30)
[2019-09-11] MEDS ORDERED: ISOVUE-370 76% 100ML VIAL (Q9967) As Ordered ONE (17:39)
[2019-09-11 17:55] LABS: ALBUMIN 2.6 GM/DL (3.2-5.2); BILIRUBIN,DIRECT 0.1 MG/DL (0.0-0.2); BILIRUBIN,TOTAL 0.2 MG/DL (0.2-1.0); TOTAL PROTEIN 7.1 GM/DL (6.4-8.2)
--- NOTE | 2019-09-11 18:25 | REPVR ---
PROCEDURE INFORMATION: Exam: CT Angiography Chest With Contrast Exam date and time: 09/11/2019 5:52 PM Age: 24 years old Clinical indication: Chest pain; Additional info: R/O pe TECHNIQUE: Imaging protocol: Computed tomographic angiography of the chest with intravenous contrast. 3D rendering: MIP and/or 3D reconstructed images were created by the technologist. Radiation optimization: All CT scans at this facility use at least one of these dose optimization techniques: automated exposure control; mA and/or kV adjustment per patient size (includes targeted exams where dose is matched to clinical indication); or iterative reconstruction. Contrast material: ISOVUE 370; Contrast volume: 75 ml; Contrast route: IV; COMPARISON: CR Chest, 2 view PA, Lat 11/15/2018 1:39 PM FINDINGS: Pulmonary arteries: The main pulmonary artery measures 31 mm. No central pulmonary embolism is identified. Aorta: The ascending thoracic aorta measures 28 mm. Lungs: Unremarkable. No consolidation. No masses. Pleural space: Unremarkable. No pneumothorax. No pleural effusion. Heart: Unremarkable. No cardiomegaly. No pericardial effusion. Mediastinum: There is an aberrant right subclavian artery passing posterior to the esophagus. Lymph nodes: Unremarkable. No enlarged lymph nodes. Bones/joints: Unremarkable. No acute fracture. Soft tissues: Unremarkable. IMPRESSION: 1. 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 2. Otherwise grossly negative CTA chest. No central pulmonary embolism is identified. Electronically signed by: Ian Turner On 09/11/2019 18:24:49 PM
[2019-09-11 18:45] VITALS: BP 122/56
--- NOTE | 2019-09-11 19:58 | ECGEPIP ---
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
== END 2019-09-11 19:08 | disposition home or self-care (01) ==
LOC: M ED 14:13
DX: O99.89 Other specified diseases and conditions complicating pregnancy, childbirth and the puerperium (principal); R07.9 Chest pain, unspecified; O98.519 Other viral diseases complicating pregnancy, unspecified trimester; Z3A.00 Weeks of gestation of pregnancy not specified; R91.8 Other nonspecific abnormal finding of lung field; Z88.0 Allergy status to penicillin; Z91.040 Latex allergy status; Z79.899 Other long term (current) drug therapy
CPT/HCPCS: 36415; 71275; 80047; 80076; 85025; 93005; 93041; 94760; 99285; Q9967

== ENCOUNTER 2019-09-26 21:36 | Emergency (ER) | payer OTHER ==
[~2019-09-26] VITALS: Ht 170.2 cm; Wt 175.0 kg
[~2019-09-26 21:36] MED LIST changes: -CLEO150C PO; -NORC1TAB7 PO
[2019-09-26] MEDS ORDERED: CLEO150C PO (22:09)
[2019-09-26] MEDS ORDERED: NORC1TAB7 PO (22:09)
[2019-09-26] MEDS ORDERED: NORCO, ANEXSIA 5/325MG TABLET (HYDROcodone/ACETAMINOPHEN) PO ONE (22:15)
[2019-09-26] MEDS ORDERED: CLINDAMYCIN 150 MG CAP PO ONE (22:15)
[2019-09-26 22:36] VITALS: BP 145/86
== END 2019-09-26 22:39 | disposition home or self-care (01) ==
LOC: M ED 21:36
DX: K04.7 Periapical abscess without sinus (principal); Z88.0 Allergy status to penicillin; Z91.040 Latex allergy status

== ENCOUNTER → 2019-09-26 | Outpatient (REF) | payer OTHER ==
[~2019-09-26] MED LIST changes: +CLEO150C PO; +NORC1TAB7 PO
== END ==
LOC: M WHC 12:47
PROVIDERS: ATTEND Advanced Practice Midwife
DX: Z36.85 Encounter for antenatal screening for Streptococcus B (principal); O26.843 Uterine size-date discrepancy, third trimester; Z3A.00 Weeks of gestation of pregnancy not specified

== ENCOUNTER → 2019-09-27 | Outpatient (CLI) | payer OTHER ==
[~2019-09-27] MED LIST changes: +CLEO150C PO; +NORC1TAB7 PO
--- NOTE | 2019-09-27 17:08 | REP ---
OB ULTRASOUND: Real-time sonographic evaluation of the gravid uterus performed. There is a single living intrauterine gestation, estimated gestational age 37 weeks 3 days, EDC 10/15/2019. Today's measurements indicate appropriate growth. BPD 92 mm = 37 weeks 3 days, 50th percentile HC 344 mm = 39 weeks 5 days, 88th percentile AC 359 mm = 39 weeks 5 days, 85th percentile FL 77 mm = 39 weeks 1 day, 76th percentile HC/AC ratio 0.96, within normal range. Estimated weight 3748 grams, 88th percentile. heart rate 150 beats per minute. Amniotic fluid within normal limits, VERONIKA 10.0, within normal range of 7.4 to 24.2. S/D ratio 2.21, within normal range of 1.6 to 2.6. RI 0.66, below normal range of 0.59 to 0.75. Visualized anatomy today includes the lateral ventricles, stomach, and bladder which are all grossly unremarkable. position vertex. Placenta posterior and grade 2 with no previa or abruption. Electronically Signed by Murali Bright MD 09/28/2019 10:34 A
== END ==
LOC: M RAD 13:40
PROVIDERS: ATTEND Advanced Practice Midwife
DX: O26.843 Uterine size-date discrepancy, third trimester (principal); Z3A.39 39 weeks gestation of pregnancy

== ENCOUNTER 2019-10-05 16:41 | Inpatient (IN) | payer OTHER ==
[2019-10-05] VITALS (7 sets, daily range): BP systolic 122–135; BP diastolic 58–72
[~2019-10-05] VITALS: Ht 170.2 cm; Wt 181.4 kg
[2019-10-05] MEDS ORDERED: PRENTAB9 PO (17:09)
[2019-10-05] MEDS ORDERED: TUMS500C PO (17:09)
[2019-10-05] MEDS ORDERED: ACET-683 PO (17:09)
[2019-10-05] MEDS ORDERED: LR 1,000 ML IV SCH (17:18)
[2019-10-05] MEDS ORDERED: OXYTOCIN DRIP 30 UNITS in IV 1 EA IV SCH ×2 (17:30→20:30)
[2019-10-05 17:40] LABS: HEMATOCRIT 33.6 % (36.0-47.0); HEMOGLOBIN 10.5 g/dl (12.0-15.5); MEAN CORPUSCULAR HEMOGLOBIN 26.9 pg (27.0-33.0); MEAN CORPUSCULAR HGB CONC 31.3 g/dl (32.0-36.5); MEAN CORPUSCULAR VOLUME 86.2 fl (80.0-96.0); PLATELET COUNT, AUTOMATED 274 10^3/uL (150-450); WHITE BLOOD COUNT 8.9 10^3/uL (4.0-10.0)
[2019-10-05] MEDS ORDERED: miSOPROStol 50 MCG 1/2 TAB (S0191) SL SCH (18:00)
--- NOTE | 2019-10-05 18:02 | HPE ---
DATE OF ADMISSION: 10/05/2019 A 24-year-old G5, P3-0-1-3 female at 38-4/7 weeks gestation by 6 week ultrasound, estimated date of confinement (EDC) of 10/15/2019, presents to the office with headaches for several days, recent swelling in her lower extremities. She had a blood pressure of 140/80 in the office. She also has a rash on her abdomen, which has been itchy. COURSE: Patient appreciated care at 8 weeks of gestation. Her first trimester blood pressure was 124/78, weight 345 pounds. course is significant for obesity. 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 She has a previous where the baby had cranial synostosis as well. Patient also has a history of kidney dysfunction and may only have one functioning kidney. OBSTETRICAL HISTORY: 1. 2011: Miscarriage. 2. 2014: 37 week vaginal delivery, 6 pound 4 ounce female infant. 3. 2015: 37 week vaginal delivery, 7 pound 10 ounce male infant. 4. 2017: 38 week vaginal delivery, 10 pound 1 ounce male infant. MEDICAL HISTORY: Kidney dysfunction. SURGICAL HISTORY: Tonsillectomy. ALLERGIES: None. SOCIAL HISTORY: Patient denies cigarettes, alcohol and drug use. She lives in [place]. FAMILY HISTORY: Cranial synostosis in one of her children. PHYSICAL EXAMINATION: Blood pressure 134/84, pulse 84. No apparent distress. HEAD AND NECK EXAM: Normal. LUNGS: Clear. HEART: Regular rate and rhythm. ABDOMEN: Nontender, gravid. HEART TONES: Category 1. STERILE VAGINAL EXAM: 3 cm, 80%, -2 posterior soft vertex. EXTREMITIES: Nontender with 2+ edema lower extremities. LABORATORY DATA: Group B Streptococcus (GBS) negative. ASSESSMENT: A 24-year-old G5, P3-0-1-3 female at 38-4/7 weeks gestation with occasional hypertension. PLAN: Plan to admit for induction on 10/05/2019. Risks of induction were discussed.
[2019-10-05 18:05] LABS: ALT/SGPT 16 U/L (12-78); BILIRUBIN,TOTAL 0.1 MG/DL (0.2-1.0); CREATININE FOR GFR 0.63 MG/DL (0.55-1.30); GLOMERULAR FILTRATION RATE > 60.0 (>60); LDH LACTATE DEHYDROGENASE 196 U/L (84-246); URIC ACID 4.6 MG/DL (2.6-6.0)
[2019-10-05] MEDS ORDERED: BUTORPHANOL 2 MG/ML INJ (J0595) IV ONE (20:30)
[2019-10-05] MEDS ORDERED: PROMETHAZINE INJ 25 MG/ML VIAL (J2550) IV ONE (20:30)
[2019-10-05] MEDS: LR 1,000 ML IV SCH (22:35)
[2019-10-06] VITALS (21 sets, daily range): BP systolic 115–143; BP diastolic 55–79
[2019-10-06] MEDS: LR 1,000 ML IV SCH (06:32)
--- NOTE | 2019-10-06 08:24 | IPNPDOC ---
Text Note Date of Service The patient was seen on 10/06/19. NOTE Progress Subjective: Patient reports she is coping with her contractions well. Reports positive movement, denies vaginal bleeding or leakage of fluid. Objective: SVE 6-7/80/-2, AROM large amount of clear fluid. FSE placement attempted, failed placement due to posterior cervix. FHR 125 with moderate variability, accelerations present, decelerations absent. Contractions moderate, every 1.5-4 minutes. IV Pitocin infusing at 10 mu/min. Assessment: SIUP @ 38.5wk gestation, IOL for GHTN, AROM clear fluid, FHR category 1. Plan: Continue labor induction. Pitocin per protocol. IV fluids per protocol. Up ad bon. Anesthesia consult PRN. Anticipate cervical change, anticipate vaginal delivery. Dr Sewet aware of pt status C/S as appropriate. VS,Fishbone, I+O VS, Fishbone, I+O Laboratory Tests 10/05/19 17:26 Vital Signs Date Time Temp Pulse Resp B/P (MAP) Pulse Ox O2 Delivery O2 Flow Rate FiO2 10/06/19 07:42 88 16 137/77 (97) 10/06/19 07:05 97.7 10/05/19 17:02 100 Marisol Santa CNM Oct 06, 2019 08:24
[2019-10-06] MEDS: PRENATAL VITAMINS CHEWABLE TABLET PO SCH (09:00)
[2019-10-06] MEDS ORDERED: OXYTOCIN DRIP 30 UNITS in IV 1 EA IV SCH (10:01)
[2019-10-06] MEDS ORDERED: ANUSOL HC CREAM 30GM TOP PRN (10:15)
[2019-10-06] MEDS ORDERED: ACETAMINOPHEN 500 MG TAB PO PRN (10:15)
[2019-10-06] MEDS ORDERED: RHOGAM 300 MCG (1500 IU) INJ (J2790) IM SCH (10:15)
[2019-10-06] MEDS ORDERED: ACETAMINOPHEN TAB 650MG DOSE (2X325MG) PO PRN (10:15)
[2019-10-06] MEDS ORDERED: METHYLERGONOVINE MALEATE 0.2 MG TAB PO PRN (10:15)
[2019-10-06] MEDS ORDERED: DOCUSATE SODIUM 100 MG CAP PO PRN (10:15)
[2019-10-06] MEDS ORDERED: MEASLES,MUMPS,RUBELLA VACCINE INJ (MMR-II) (90707) SC SCH (10:15)
[2019-10-06] MEDS ORDERED: miSOPROStol 200 MCG TAB (S0191) PR ONE (10:15)
[2019-10-06] MEDS ORDERED: MOM 30ML SUSPENSION UDC PO PRN (10:15)
[2019-10-06] MEDS ORDERED: IBUPROFEN 600 MG TAB PO PRN (10:15)
[2019-10-06] MEDS ORDERED: DIBUCAINE 1% OINTMENT 30GM TOP PRN (10:15)
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
[2019-10-06] MEDS: IBUPROFEN 800 MG TAB PO PRN (21:50)
[2019-10-07 05:44] VITALS: BP 140/89
--- NOTE | 2019-10-07 07:53 | IPNPDOC ---
Progress Note Date of Service: Oct 07, 2019 Day#: 1 Progress Note SUBJECT: Sulma is a 24-year-old 5 now Para 4-0-1-4 status post uncompli cated spontaneous vaginal delivery at 38-5/7 weeks' at approximately doing well day # 1. She has been ambulating, voiding spontaneously without issue and tolerating regular diet. Breast feeding with minimal issue, nipples are flat. Reports lochia is like a normal period. Reports pain is well-controlled. OBJECTIVE: VITAL SIGNS: Within normal limits, afebrile. Alert and oriented times three. Breath sounds clear to auscultation. Heart rate: Regular rate and rhythm, no murmurs, rubs or gallops. Abdomen: Fundus firm at U-2. Soft, appropriately tender to palpation. Minimal lochia. ASSESSMENT: day #1. Vitals within normal limits, afebrile, hemodynamically stable with no evidence of infection. PLAN: 1. Discharge to home tomorrow. 2. Tylenol and Motrin for pain. 3. Encourage breast feeding and ambulation. 4. Routine care. VS, I&O, 24H, Fishbone Vital Signs/I&O Vital Signs Date Time Temp Pulse Resp B/P (MAP) Pulse Ox O2 Delivery O2 Flow Rate FiO2 10/07/19 05:44 97.5 77 18 140/89 (106) 10/06/19 17:53 98 I&O- Last 24 Hours up to 6 AM 10/07/19 05:59 Intake Total 2450 ml Output Total 1500 ml Balance 950 ml Marisol Santa CNM Oct 07, 2019 07:53
[2019-10-07] MEDS: PRENATAL VITAMINS CHEWABLE TABLET PO SCH (08:37)
[2019-10-07] MEDS: IBUPROFEN 800 MG TAB PO PRN (08:37)
== END 2019-10-07 14:40 | disposition home or self-care (01) | DRG 560 ==
LOC: M LDI 16:41 → M OBS 10-06 12:45
PROVIDERS: ADMIT Specialist; ATTEND Advanced Practice Midwife
PROC: 3E033VJ Introduction of Other Hormone into Peripheral Vein, Percutaneous Approach (ICD-10-PCS; 2019-10-05)
PROC: 10E0XZZ Delivery of Products of Conception, External Approach (ICD-10-PCS; principal; 2019-10-06)
PROC: 10907ZC Drainage of Amniotic Fluid, Therapeutic from Products of Conception, Via Natural or Artificial Opening (ICD-10-PCS; 2019-10-06)
DX: O13.4 Gestational [pregnancy-induced] hypertension without significant proteinuria, complicating childbirth (principal); O99.214 Obesity complicating childbirth; Z3A.38 38 weeks gestation of pregnancy; Z37.0 Single live birth; E66.9 Obesity, unspecified; O26.833 Pregnancy related renal disease, third trimester; N28.9 Disorder of kidney and ureter, unspecified; O69.81X0 Labor and delivery complicated by cord around neck, without compression, not applicable or unspecified

== ENCOUNTER 2020-04-13 13:05 | Emergency (ER) | payer OTHER ==
[~2020-04-13] VITALS: Ht 170.2 cm; Wt 160.7 kg
[~2020-04-13 13:05] MED LIST changes: +ACET-683 PO
[2020-04-13 13:55] LABS: BASO # 0.1 10^3/uL (0.0-0.2); BASO % 0.5 % (0.0-1.0); EOS # 0.1 10^3/uL (0.0-0.5); EOS % 1.3 % (0.0-3.0); HEMATOCRIT 40.1 % (36.0-47.0); HEMOGLOBIN 12.5 g/dl (12.0-15.5); LYMPH # 2.2 10^3/uL (1.5-5.0); LYMPH % 22.3 % (24.0-44.0); MEAN CORPUSCULAR HEMOGLOBIN 26.8 pg (27.0-33.0); MEAN CORPUSCULAR HGB CONC 31.2 g/dl (32.0-36.5); MEAN CORPUSCULAR VOLUME 85.9 fl (80.0-96.0); MONO # 0.8 10^3/uL (0.0-0.8); MONO % 7.6 % (0.0-5.0); NEUTROPHILS # 6.7 10^3/uL (1.5-8.5); PLATELET COUNT, AUTOMATED 409 10^3/uL (150-450); RED BLOOD COUNT 4.67 10^6/uL (4.00-5.40); WHITE BLOOD COUNT 9.9 10^3/uL (4.0-10.0)
[2020-04-13] MEDS ORDERED: ISOVUE-370 76% 100ML VIAL As Ordered ONE (13:59)
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
[2020-04-13] MEDS ORDERED: CYCL-707 PO (15:20)
[2020-04-13 15:27] VITALS: BP 119/61
== END 2020-04-13 15:29 | disposition home or self-care (01) ==
LOC: M ED 13:05
DX: Z04.1 Encounter for examination and observation following transport accident (principal); Z88.0 Allergy status to penicillin; Z91.040 Latex allergy status; F17.210 Nicotine dependence, cigarettes, uncomplicated
CPT/HCPCS: 36415; 72125; 72128; 74177; 80047; 84702; 85025; 99284; Q9967

== ENCOUNTER 2021-01-14 05:37 | Emergency (ER) | payer OTHER ==
[~2021-01-14] VITALS: Ht 170.2 cm; Wt 145.5 kg
[~2021-01-14 05:37] MED LIST changes: +CYCL-707 PO
[2021-01-14 06:08] LABS: HEMATOCRIT 40.8 % (36.0-47.0); HEMOGLOBIN 12.6 g/dl (12.0-15.5); MEAN CORPUSCULAR HEMOGLOBIN 27.3 pg (27.0-33.0); MEAN CORPUSCULAR HGB CONC 30.9 g/dl (32.0-36.5); MEAN CORPUSCULAR VOLUME 88.5 fl (80.0-96.0); PLATELET COUNT, AUTOMATED 264 10^3/uL (150-450); RED BLOOD COUNT 4.61 10^6/uL (4.00-5.40); WHITE BLOOD COUNT 8.7 10^3/uL (4.0-10.0)
[2021-01-14 06:38] LABS: AMPHETAMINES LEVEL URINE NEGATIVE (NEGATIVE); BARBITURATES URINE NEGATIVE (NEGATIVE); BENZODIAZEPINES URINE NEGATIVE (NEGATIVE); CANNABINOIDS URINE NEGATIVE (NEGATIVE); COCAINE METABOLITE URINE NEGATIVE (NEGATIVE); METHADONE URINE NEGATIVE (NEGATIVE); OPIATES URINE NEGATIVE (NEGATIVE); PHENCYCLIDINE URINE NEGATIVE (NEGATIVE)
[2021-01-14 06:47] LABS: HCG, SERUM QUALITATIVE NEGATIVE (NEGATIVE)
[2021-01-14 06:48] LABS: ACETAMINOPHEN LEVEL < 2.0 UG/ML (10.0-30.0); ALBUMIN 3.1 GM/DL (3.2-5.2); ALT/SGPT 25 U/L (12-78); BILIRUBIN,DIRECT < 0.1 MG/DL (0.0-0.2); BILIRUBIN,TOTAL 0.1 MG/DL (0.2-1.0); BLOOD UREA NITROGEN 7 MG/DL (7-18); CALCIUM LEVEL 8.7 MG/DL (8.5-10.1); CARBON DIOXIDE LEVEL 22 MEQ/L (21-32); CHLORIDE LEVEL 110 MEQ/L (98-107); CREATININE FOR GFR 0.72 MG/DL (0.55-1.30); ETHYL ALCOHOL (ETHANOL) 0.067 % (0.000-0.010); GLOMERULAR FILTRATION RATE > 60.0 (>60); GLUCOSE, FASTING 94 MG/DL (70-100); POTASSIUM SERUM 3.9 MEQ/L (3.5-5.1); SALICYLATE LEVEL 2.6 MG/DL (5.0-30.0); SODIUM LEVEL 140 MEQ/L (136-145); TOTAL PROTEIN 7.3 GM/DL (6.4-8.2)
[2021-01-14 13:59] LABS: RSV AMPLIFICATION NEGATIVE (NEGATIVE)
--- NOTE | 2021-01-14 21:03 | ECGEPIP ---
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
[2021-01-14 23:39] VITALS: BP 128/69
== END 2021-01-14 23:41 ==
LOC: M ED 05:37
DX: R45.851 Suicidal ideations (principal); F33.9 Major depressive disorder, recurrent, unspecified; Z88.0 Allergy status to penicillin; Z91.040 Latex allergy status

== ENCOUNTER 2021-11-27 17:51 | Emergency (ER) | payer OTHER ==
[~2021-11-27] VITALS: Ht 170.2 cm; Wt 121.8 kg
[2021-11-27 17:51] VITALS: BP 132/76
== END 2021-11-27 20:00 | disposition left against medical advice (07) ==
LOC: M ED 17:51
DX: Z53.21 Procedure and treatment not carried out due to patient leaving prior to being seen by health care provider (principal)

== ENCOUNTER 2021-11-29 19:54 | Emergency (ER) | payer OTHER ==
[~2021-11-29] VITALS: Ht 170.2 cm; Wt 124.5 kg
[2021-11-29 19:55] VITALS: BP 136/63
== END 2021-11-29 23:09 | disposition left against medical advice (07) ==
LOC: M ED 19:54
DX: Z53.21 Procedure and treatment not carried out due to patient leaving prior to being seen by health care provider (principal)

== ENCOUNTER 2022-02-14 00:11 | Emergency (ER) | payer OTHER, MEDICAID ==
[~2022-02-14] VITALS: Ht 170.2 cm; Wt 114.1 kg
[2022-02-14 00:11] VITALS: BP 122/74
[2022-02-14] MEDS ORDERED: BACTDSTA PO (00:21)
[2022-02-14] MEDS ORDERED: CLIN1GEL22 TOP (00:21)
[2022-02-14] MEDS ORDERED: ACAM0.05 PO (00:21)
[2022-02-14] MEDS ORDERED: BACTRIM 160MG/800MG DS TAB PO ONE (01:50)
== END 2022-02-14 02:28 | disposition home or self-care (01) ==
LOC: M ED 00:11
DX: L73.2 Hidradenitis suppurativa (principal); L03.313 Cellulitis of chest wall; Z88.0 Allergy status to penicillin; Z91.040 Latex allergy status

== ENCOUNTER → 2022-02-25 | Outpatient (CLI) | payer OTHER ==
[~2022-02-25] MED LIST changes: +ACAM0.05 PO; +BACTDSTA PO; +CLIN1GEL22 TOP
[2022-02-25 11:54] LABS: BASO % 0.5 % (0.0-1.0); EOS # 0.1 10^3/uL (0.0-0.5); EOS % 1.4 % (0.0-3.0); HEMATOCRIT 38.6 % (36.0-47.0); HEMOGLOBIN 11.9 g/dl (12.0-15.5); LYMPH # 1.9 10^3/uL (1.5-5.0); LYMPH % 24.6 % (24.0-44.0); MEAN CORPUSCULAR HEMOGLOBIN 25.5 pg (27.0-33.0); MEAN CORPUSCULAR HGB CONC 30.8 g/dl (32.0-36.5); MEAN CORPUSCULAR VOLUME 82.8 fl (80.0-96.0); MONO # 0.6 10^3/uL (0.0-0.8); NEUTROPHILS # 5.2 10^3/uL (1.5-8.5); NEUTROPHILS % 66.1 % (36.0-66.0); PLATELET COUNT, AUTOMATED 406 10^3/uL (150-450); RED BLOOD COUNT 4.66 10^6/uL (4.00-5.40); WHITE BLOOD COUNT 7.9 10^3/uL (4.0-10.0)
[2022-02-25 13:05] LABS: ALBUMIN 3.3 GM/DL (3.2-5.2); ALT/SGPT 18 U/L (12-78); BILIRUBIN,TOTAL 0.3 MG/DL (0.2-1.0); BLOOD UREA NITROGEN 8 MG/DL (7-18); CALCIUM LEVEL 9.1 MG/DL (8.5-10.1); CARBON DIOXIDE LEVEL 27 MEQ/L (21-32); CHLORIDE LEVEL 108 MEQ/L (98-107); CREATININE FOR GFR 0.77 MG/DL (0.55-1.30); GLOMERULAR FILTRATION RATE > 60.0 (>60); GLUCOSE, FASTING 88 MG/DL (70-100); SODIUM LEVEL 140 MEQ/L (136-145); TOTAL PROTEIN 7.6 GM/DL (6.4-8.2)
[2022-02-25 13:55] LABS: HEPATITIS B SURFACE ANTIGEN NEGATIVE (NEGATIVE)
[2022-02-25 14:21] LABS: HEPATITIS B CORE ANTIBODY IGM NEGATIVE (NEGATIVE); HEPATITIS C VIRUS ABY INDEX < 0.0 INDEX (<0.8)
[2022-02-25 14:24] LABS: HIV 1&2 SCREEN CENTAUR NEGATIVE (NEGATIVE)
== END ==
LOC: M LAB 10:37
PROVIDERS: ATTEND Physician Assistant
DX: L73.2 Hidradenitis suppurativa (principal)

== ENCOUNTER 2022-06-22 23:14 | Emergency (ER) | payer OTHER ==
[~2022-06-22] VITALS: Ht 170.2 cm; Wt 97.4 kg
[2022-06-23] MEDS ORDERED: CLEO300C2 PO (00:49)
[2022-06-23] MEDS ORDERED: CLINDAMYCIN 150MG CAPSULE PO ONE (00:50)
[2022-06-23 00:57] VITALS: BP 138/80
== END 2022-06-23 01:19 | disposition home or self-care (01) ==
LOC: M ED 23:14
DX: L73.2 Hidradenitis suppurativa (principal); F17.200 Nicotine dependence, unspecified, uncomplicated; Z88.0 Allergy status to penicillin; Z91.040 Latex allergy status

== ENCOUNTER 2022-09-04 10:30 | Inpatient (IN) | payer OTHER ==
[~2022-09-04 10:30] MED LIST changes: +ASCO250T20 PO; +CELE20TA PO; +DOCU100C16 PO; +ELIQ5TAB4 PO; +FERR1TAB8 PO; +IBUP1TAB6 PO; +MIRA1POW3 PO; +PRED10PA PO; +PROT1TAB2 PO; +RISATAB3 PO; +SENN-52 PO; +ZINC220CA PO
[2022-09-04 12:32] VITALS: BP 112/72
[2022-09-04 13:58] LABS: HEMATOCRIT 35.3 % (36.0-47.0); MEAN CORPUSCULAR HEMOGLOBIN 25.4 pg (27.0-33.0); MEAN CORPUSCULAR HGB CONC 28.3 g/dl (32.0-36.5); MEAN CORPUSCULAR VOLUME 89.8 fl (80.0-96.0); PLATELET COUNT, AUTOMATED 444 10^3/uL (150-450); RED BLOOD COUNT 3.93 10^6/uL (4.00-5.40); WHITE BLOOD COUNT 9.8 10^3/uL (4.0-10.0)
[2022-09-04 14:00] VITALS: BP 130/70
[2022-09-04 14:20] LABS: BLOOD UREA NITROGEN 9 MG/DL (9-23); CALCIUM LEVEL 8.7 MG/DL (8.5-10.1); CARBON DIOXIDE LEVEL 25 MMOL/L (20-31); CHLORIDE LEVEL 105 MMOL/L (98-107); CREATININE FOR GFR 0.73 MG/DL (0.55-1.30); GLOMERULAR FILTRATION RATE > 60.0 (>60); GLUCOSE, FASTING 99 MG/DL (60-100); POTASSIUM SERUM 3.9 MMOL/L (3.5-5.1); SODIUM LEVEL 141 MMOL/L (136-145)
[2022-09-04] MEDS ORDERED: SENN-52 PO (14:42)
[2022-09-04] MEDS ORDERED: MIRA3350 PO (14:42)
[2022-09-04] MEDS ORDERED: LEVO1TAB39 PO (14:42)
[2022-09-04] MEDS ORDERED: PRED10TA2 PO (15:50)
[2022-09-04] MEDS ORDERED: ELIQ5TAB PO (15:50)
[2022-09-04] MEDS ORDERED: CELE20TA PO (15:51)
[2022-09-04] MEDS ORDERED: HOME MED LIST COMPLETE! XX SCH (15:55)
[2022-09-04] MEDS ORDERED: DOCUSATE SODIUM 100MG CAPSULE PO PRN (16:10)
[2022-09-04] MEDS ORDERED: ACETAMINOPHEN TAB 650MG DOSE (2X325MG) PO PRN (16:40)
[2022-09-04] MEDS: LACTOBACILLUS ACIDOPHILUS CAP (BACID) PO SCH ×2 (16:49→20:33)
[2022-09-04] MEDS: LevoFLOXacin 500 MG TABLET PO SCH (16:49)
[2022-09-04] MEDS ORDERED: PERCOCET 5MG/325MG TAB PO ONE (18:00)
[2022-09-04] MEDS: ASCORBIC ACID 250 MG TAB PO SCH (20:33)
[2022-09-04] MEDS: APIXABAN 5 MG TAB (ELIQUIS) PO SCH (20:33)
[2022-09-04 21:55] VITALS: BP 125/57
[2022-09-05 06:00] VITALS: BP 125/57
[2022-09-05] MEDS: LevoFLOXacin 500 MG TABLET PO SCH (06:09)
[2022-09-05 06:54] LABS: HEMATOCRIT 31.3 % (36.0-47.0); HEMOGLOBIN 9.3 g/dl (12.0-15.5); MEAN CORPUSCULAR HEMOGLOBIN 25.2 pg (27.0-33.0); MEAN CORPUSCULAR HGB CONC 29.7 g/dl (32.0-36.5); MEAN CORPUSCULAR VOLUME 84.8 fl (80.0-96.0); PLATELET COUNT, AUTOMATED 451 10^3/uL (150-450); RED BLOOD COUNT 3.69 10^6/uL (4.00-5.40); WHITE BLOOD COUNT 9.6 10^3/uL (4.0-10.0)
[2022-09-05 07:13] LABS: BLOOD UREA NITROGEN 11 MG/DL (9-23); CALCIUM LEVEL 8.5 MG/DL (8.5-10.1); CARBON DIOXIDE LEVEL 28 MMOL/L (20-31); CHLORIDE LEVEL 102 MMOL/L (98-107); CREATININE FOR GFR 0.61 MG/DL (0.55-1.30); GLOMERULAR FILTRATION RATE > 60.0 (>60); GLUCOSE, FASTING 98 MG/DL (60-100); POTASSIUM SERUM 4.2 MMOL/L (3.5-5.1); SODIUM LEVEL 137 MMOL/L (136-145)
[2022-09-05] MEDS ORDERED: ENOXAPARIN 40MG/0.4ML SYRINGE (J1650 PER 10MG) SC SCH (09:00)
[2022-09-05] MEDS: ASCORBIC ACID 250 MG TAB PO SCH ×2 (10:54→21:08)
[2022-09-05] MEDS: predniSONE 10MG TAB PO SCH (10:54)
[2022-09-05] MEDS: FERROUS SULFATE 325MG TAB PO SCH (10:54)
[2022-09-05] MEDS: LACTOBACILLUS ACIDOPHILUS CAP (BACID) PO SCH ×4 (10:54→21:07)
[2022-09-05] MEDS: APIXABAN 5 MG TAB (ELIQUIS) PO SCH ×2 (10:55→21:07)
[2022-09-05] MEDS: CitaloPRAM (CeleXA) 20 MG TAB PO SCH (10:55)
[2022-09-05 14:00] VITALS: BP 134/79
[2022-09-05] MEDS: ACETAMINOPH W/CODEINE #3 TAB UD PO PRN ×2 (15:03→21:10)
[2022-09-05 22:18] VITALS: BP 125/66
[2022-09-06] MEDS: LevoFLOXacin 500 MG TABLET PO SCH (05:26)
[2022-09-06 06:20] VITALS: BP 124/62
[2022-09-06] MEDS: LACTOBACILLUS ACIDOPHILUS CAP (BACID) PO SCH ×4 (08:00→20:41)
[2022-09-06] MEDS: predniSONE 10MG TAB PO SCH (11:40)
[2022-09-06] MEDS: FERROUS SULFATE 325MG TAB PO SCH (11:40)
[2022-09-06] MEDS: ASCORBIC ACID 250 MG TAB PO SCH ×2 (11:40→20:42)
[2022-09-06] MEDS: CitaloPRAM (CeleXA) 20 MG TAB PO SCH (11:40)
[2022-09-06] MEDS: APIXABAN 5 MG TAB (ELIQUIS) PO SCH ×2 (11:41→20:42)
[2022-09-06 14:00] VITALS: BP 113/65
[2022-09-06] MEDS: LIDOCAINE 2% JELLY 6ML SYRINGE TOP PRN (16:21)
[2022-09-06] MEDS: ACETAMINOPH W/CODEINE #3 TAB UD PO PRN (20:41)
[2022-09-06 21:47] VITALS: BP 125/59
[2022-09-07 06:18] LABS: HEMATOCRIT 32.5 % (36.0-47.0); HEMOGLOBIN 9.9 g/dl (12.0-15.5); MEAN CORPUSCULAR HEMOGLOBIN 26.1 pg (27.0-33.0); MEAN CORPUSCULAR HGB CONC 30.5 g/dl (32.0-36.5); MEAN CORPUSCULAR VOLUME 85.5 fl (80.0-96.0); PLATELET COUNT, AUTOMATED 479 10^3/uL (150-450); WHITE BLOOD COUNT 9.7 10^3/uL (4.0-10.0)
[2022-09-07 06:29] VITALS: BP 127/54
[2022-09-07] MEDS: LACTOBACILLUS ACIDOPHILUS CAP (BACID) PO SCH ×4 (08:00→20:13)
[2022-09-07] MEDS: predniSONE 10MG TAB PO SCH (10:19)
[2022-09-07] MEDS: APIXABAN 5 MG TAB (ELIQUIS) PO SCH ×2 (10:19→20:13)
[2022-09-07] MEDS: FERROUS SULFATE 325MG TAB PO SCH (10:19)
[2022-09-07] MEDS: CitaloPRAM (CeleXA) 20 MG TAB PO SCH (10:20)
[2022-09-07] MEDS: ASCORBIC ACID 250 MG TAB PO SCH ×2 (10:20→20:13)
[2022-09-07 14:00] VITALS: BP 107/66
[2022-09-07 23:40] VITALS: BP 126/61
[2022-09-08 05:49] VITALS: BP 117/56
[2022-09-08 08:19] LABS: BASO # 0.1 10^3/uL (0.0-0.2); BASO % 0.5 % (0.0-1.0); EOS # 0.4 10^3/uL (0.0-0.5); EOS % 3.8 % (0.0-3.0); HEMATOCRIT 31.2 % (36.0-47.0); HEMOGLOBIN 9.4 g/dl (12.0-15.5); LYMPH # 2.4 10^3/uL (1.5-5.0); MEAN CORPUSCULAR HEMOGLOBIN 25.4 pg (27.0-33.0); MEAN CORPUSCULAR HGB CONC 30.1 g/dl (32.0-36.5); MEAN CORPUSCULAR VOLUME 84.3 fl (80.0-96.0); MONO % 11.1 % (2.0-8.0); NEUTROPHILS # 5.3 10^3/uL (1.5-8.5); NEUTROPHILS % 58.1 % (36.0-66.0); PLATELET COUNT, AUTOMATED 482 10^3/uL (150-450); WHITE BLOOD COUNT 9.2 10^3/uL (4.0-10.0)
[2022-09-08 08:43] LABS: BLOOD UREA NITROGEN 9 MG/DL (9-23); CALCIUM LEVEL 8.2 MG/DL (8.5-10.1); CARBON DIOXIDE LEVEL 30 MMOL/L (20-31); CHLORIDE LEVEL 104 MMOL/L (98-107); CREATININE FOR GFR 0.62 MG/DL (0.55-1.30); GLOMERULAR FILTRATION RATE > 60.0 (>60); GLUCOSE, FASTING 90 MG/DL (60-100); MAGNESIUM LEVEL 1.7 MG/DL (1.8-2.4); POTASSIUM SERUM 4.3 MMOL/L (3.5-5.1); SODIUM LEVEL 136 MMOL/L (136-145)
[2022-09-08] MEDS: LACTOBACILLUS ACIDOPHILUS CAP (BACID) PO SCH ×4 (09:24→21:40)
[2022-09-08] MEDS: APIXABAN 5 MG TAB (ELIQUIS) PO SCH ×2 (09:25→21:40)
[2022-09-08] MEDS: FERROUS SULFATE 325MG TAB PO SCH (09:25)
[2022-09-08] MEDS: ASCORBIC ACID 250 MG TAB PO SCH ×2 (09:25→21:40)
[2022-09-08] MEDS: CitaloPRAM (CeleXA) 20 MG TAB PO SCH (09:25)
[2022-09-08] MEDS: ACETAMINOPH W/CODEINE #3 TAB UD PO PRN (09:27)
[2022-09-08] MEDS: predniSONE 10MG TAB PO SCH (09:28)
[2022-09-08] MEDS ORDERED: MAG SULF 1GM/100ML (MAG RUN) 1 GM in IV 1 EA IV ONE (09:35)
[2022-09-08 10:00] VITALS: BP 143/75
[2022-09-08] MEDS ORDERED: PERCOCET 5MG/325MG TAB PO ONE (10:45)
[2022-09-08] MEDS ORDERED: MAGNESIUM OXIDE 400MG TAB (MAG-OX) PO ONE (12:50)
[2022-09-09] MEDS: PERCOCET 5MG/325MG TAB PO PRN ×3 (04:53→21:17)
[2022-09-09 06:16] VITALS: BP 145/85
[2022-09-09 06:56] LABS: BLOOD UREA NITROGEN 13 MG/DL (9-23); CALCIUM LEVEL 8.5 MG/DL (8.5-10.1); CARBON DIOXIDE LEVEL 24 MMOL/L (20-31); CHLORIDE LEVEL 102 MMOL/L (98-107); GLOMERULAR FILTRATION RATE > 60.0 (>60); GLUCOSE, FASTING 116 MG/DL (60-100); SODIUM LEVEL 137 MMOL/L (136-145)
[2022-09-09] MEDS: ACETAMINOPH W/CODEINE #3 TAB UD PO PRN (09:54)
[2022-09-09] MEDS: FERROUS SULFATE 325MG TAB PO SCH (09:54)
[2022-09-09] MEDS: CitaloPRAM (CeleXA) 20 MG TAB PO SCH (09:54)
[2022-09-09] MEDS: ASCORBIC ACID 250 MG TAB PO SCH ×2 (09:55→21:16)
[2022-09-09] MEDS: predniSONE 10MG TAB PO SCH (09:55)
[2022-09-09] MEDS: LACTOBACILLUS ACIDOPHILUS CAP (BACID) PO SCH ×4 (09:55→21:16)
[2022-09-09] MEDS: APIXABAN 5 MG TAB (ELIQUIS) PO SCH ×2 (09:55→21:17)
[2022-09-09] MEDS ORDERED: hydrOXYzine 50 MG TAB PO PRN (20:35)
[2022-09-10] MEDS: ACETAMINOPH W/CODEINE #3 TAB UD PO PRN ×2 (01:44→20:35)
[2022-09-10 06:13] VITALS: BP 109/52
[2022-09-10 06:32] LABS: HEMATOCRIT 31.9 % (36.0-47.0); HEMOGLOBIN 9.6 g/dl (12.0-15.5); MEAN CORPUSCULAR HEMOGLOBIN 25.1 pg (27.0-33.0); MEAN CORPUSCULAR HGB CONC 30.1 g/dl (32.0-36.5); MEAN CORPUSCULAR VOLUME 83.5 fl (80.0-96.0); PLATELET COUNT, AUTOMATED 455 10^3/uL (150-450); RED BLOOD COUNT 3.82 10^6/uL (4.00-5.40); WHITE BLOOD COUNT 9.1 10^3/uL (4.0-10.0)
[2022-09-10] MEDS: PERCOCET 5MG/325MG TAB PO PRN ×3 (06:35→22:36)
[2022-09-10 07:00] LABS: BLOOD UREA NITROGEN 11 MG/DL (9-23); CALCIUM LEVEL 8.7 MG/DL (8.5-10.1); CARBON DIOXIDE LEVEL 30 MMOL/L (20-31); CHLORIDE LEVEL 104 MMOL/L (98-107); CREATININE FOR GFR 0.59 MG/DL (0.55-1.30); GLOMERULAR FILTRATION RATE > 60.0 (>60); GLUCOSE, FASTING 83 MG/DL (60-100); POTASSIUM SERUM 4.4 MMOL/L (3.5-5.1); SODIUM LEVEL 138 MMOL/L (136-145)
[2022-09-10] MEDS: FERROUS SULFATE 325MG TAB PO SCH (08:37)
[2022-09-10] MEDS: predniSONE 10MG TAB PO SCH (08:37)
[2022-09-10] MEDS: LACTOBACILLUS ACIDOPHILUS CAP (BACID) PO SCH ×4 (08:38→21:25)
[2022-09-10] MEDS: CitaloPRAM (CeleXA) 20 MG TAB PO SCH (08:38)
[2022-09-10] MEDS: APIXABAN 5 MG TAB (ELIQUIS) PO SCH ×2 (08:39→21:25)
[2022-09-10] MEDS: ASCORBIC ACID 250 MG TAB PO SCH ×2 (08:39→21:25)
[2022-09-11] MEDS: PERCOCET 5MG/325MG TAB PO PRN ×2 (06:04→19:23)
[2022-09-11 06:47] VITALS: BP 108/51
[2022-09-11 07:03] LABS: BLOOD UREA NITROGEN 9 MG/DL (9-23); CALCIUM LEVEL 8.8 MG/DL (8.5-10.1); CARBON DIOXIDE LEVEL 29 MMOL/L (20-31); CHLORIDE LEVEL 101 MMOL/L (98-107); CREATININE FOR GFR 0.65 MG/DL (0.55-1.30); GLOMERULAR FILTRATION RATE > 60.0 (>60); GLUCOSE, FASTING 92 MG/DL (60-100); POTASSIUM SERUM 5.2 MMOL/L (3.5-5.1); SODIUM LEVEL 136 MMOL/L (136-145)
[2022-09-11] MEDS ORDERED: SOD POLYSTYRENE SULFONATE SUSP 15GM 60ML UD PO ONE (08:00)
[2022-09-11] MEDS: LACTOBACILLUS ACIDOPHILUS CAP (BACID) PO SCH ×4 (09:15→21:15)
[2022-09-11] MEDS: CitaloPRAM (CeleXA) 20 MG TAB PO SCH (09:17)
[2022-09-11] MEDS: APIXABAN 5 MG TAB (ELIQUIS) PO SCH ×2 (09:17→21:15)
[2022-09-11] MEDS: FERROUS SULFATE 325MG TAB PO SCH (09:18)
[2022-09-11] MEDS: ASCORBIC ACID 250 MG TAB PO SCH ×2 (09:18→21:15)
[2022-09-11] MEDS: predniSONE 10MG TAB PO SCH (09:18)
[2022-09-11] MEDS: ACETAMINOPH W/CODEINE #3 TAB UD PO PRN ×2 (09:24→21:14)
[2022-09-12] MEDS: PERCOCET 5MG/325MG TAB PO PRN ×3 (01:25→21:27)
[2022-09-12 06:28] VITALS: BP 122/84
[2022-09-12 07:34] LABS: BLOOD UREA NITROGEN 13 MG/DL (9-23); CALCIUM LEVEL 8.5 MG/DL (8.5-10.1); CARBON DIOXIDE LEVEL 33 MMOL/L (20-31); CHLORIDE LEVEL 99 MMOL/L (98-107); GLOMERULAR FILTRATION RATE > 60.0 (>60); GLUCOSE, FASTING 84 MG/DL (60-100); SODIUM LEVEL 137 MMOL/L (136-145)
[2022-09-12] MEDS: ASCORBIC ACID 250 MG TAB PO SCH ×2 (08:40→21:27)
[2022-09-12] MEDS: CitaloPRAM (CeleXA) 20 MG TAB PO SCH (08:40)
[2022-09-12] MEDS: LACTOBACILLUS ACIDOPHILUS CAP (BACID) PO SCH ×4 (08:41→21:27)
[2022-09-12] MEDS: FERROUS SULFATE 325MG TAB PO SCH (08:41)
[2022-09-12] MEDS: APIXABAN 5 MG TAB (ELIQUIS) PO SCH ×2 (08:41→21:27)
[2022-09-12] MEDS: predniSONE 10MG TAB PO SCH (08:41)
[2022-09-13 06:00] VITALS: BP 111/65
[2022-09-13 07:10] LABS: HEMATOCRIT 32.9 % (36.0-47.0); HEMOGLOBIN 9.8 g/dl (12.0-15.5); MEAN CORPUSCULAR HEMOGLOBIN 25.4 pg (27.0-33.0); MEAN CORPUSCULAR HGB CONC 29.8 g/dl (32.0-36.5); MEAN CORPUSCULAR VOLUME 85.2 fl (80.0-96.0); PLATELET COUNT, AUTOMATED 410 10^3/uL (150-450); RED BLOOD COUNT 3.86 10^6/uL (4.00-5.40); WHITE BLOOD COUNT 8.7 10^3/uL (4.0-10.0)
[2022-09-13 07:39] LABS: BLOOD UREA NITROGEN 12 MG/DL (9-23); CARBON DIOXIDE LEVEL 28 MMOL/L (20-31); CHLORIDE LEVEL 103 MMOL/L (98-107); CREATININE FOR GFR 0.62 MG/DL (0.55-1.30); GLOMERULAR FILTRATION RATE > 60.0 (>60); GLUCOSE, FASTING 88 MG/DL (60-100); POTASSIUM SERUM 4.6 MMOL/L (3.5-5.1); SODIUM LEVEL 138 MMOL/L (136-145)
[2022-09-13] MEDS: LACTOBACILLUS ACIDOPHILUS CAP (BACID) PO SCH ×4 (09:36→22:09)
[2022-09-13] MEDS: FERROUS SULFATE 325MG TAB PO SCH (09:37)
[2022-09-13] MEDS: APIXABAN 5 MG TAB (ELIQUIS) PO SCH ×2 (09:37→22:09)
[2022-09-13] MEDS: PERCOCET 5MG/325MG TAB PO PRN ×2 (09:37→17:29)
[2022-09-13] MEDS: CitaloPRAM (CeleXA) 20 MG TAB PO SCH (09:37)
[2022-09-13] MEDS: predniSONE 10MG TAB PO SCH (09:37)
[2022-09-13] MEDS: ASCORBIC ACID 250 MG TAB PO SCH ×2 (09:38→22:09)
[2022-09-13] MEDS: LIDOCAINE 2% JELLY 6ML SYRINGE TOP PRN (18:02)
[2022-09-13] MEDS: ACETAMINOPH W/CODEINE #3 TAB UD PO PRN (22:21)
[2022-09-14 06:00] VITALS: BP 115/63
[2022-09-14] MEDS: PERCOCET 5MG/325MG TAB PO PRN ×3 (06:21→22:57)
[2022-09-14 06:37] LABS: BLOOD UREA NITROGEN 10 MG/DL (9-23); CALCIUM LEVEL 8.2 MG/DL (8.5-10.1); CARBON DIOXIDE LEVEL 30 MMOL/L (20-31); CHLORIDE LEVEL 103 MMOL/L (98-107); GLOMERULAR FILTRATION RATE > 60.0 (>60); GLUCOSE, FASTING 91 MG/DL (60-100); POTASSIUM SERUM 4.2 MMOL/L (3.5-5.1); SODIUM LEVEL 139 MMOL/L (136-145)
[2022-09-14] MEDS: LACTOBACILLUS ACIDOPHILUS CAP (BACID) PO SCH ×4 (09:35→20:03)
[2022-09-14] MEDS: predniSONE 10MG TAB PO SCH (09:35)
[2022-09-14] MEDS: APIXABAN 5 MG TAB (ELIQUIS) PO SCH ×2 (09:35→20:03)
[2022-09-14] MEDS: CitaloPRAM (CeleXA) 20 MG TAB PO SCH (09:35)
[2022-09-14] MEDS: FERROUS SULFATE 325MG TAB PO SCH (09:35)
[2022-09-14] MEDS: ASCORBIC ACID 250 MG TAB PO SCH ×2 (09:35→20:03)
[2022-09-14] MEDS: ACETAMINOPH W/CODEINE #3 TAB UD PO PRN (20:08)
[2022-09-15 06:00] VITALS: BP 112/63
[2022-09-15 06:35] LABS: BLOOD UREA NITROGEN 9 MG/DL (9-23); CALCIUM LEVEL 8.6 MG/DL (8.5-10.1); CARBON DIOXIDE LEVEL 29 MMOL/L (20-31); CHLORIDE LEVEL 102 MMOL/L (98-107); CREATININE FOR GFR 0.58 MG/DL (0.55-1.30); GLOMERULAR FILTRATION RATE > 60.0 (>60); GLUCOSE, FASTING 89 MG/DL (60-100); POTASSIUM SERUM 4.1 MMOL/L (3.5-5.1); SODIUM LEVEL 138 MMOL/L (136-145)
[2022-09-15] MEDS: LACTOBACILLUS ACIDOPHILUS CAP (BACID) PO SCH ×2 (07:48→13:14)
[2022-09-15 08:50] VITALS: BP 105/58
[2022-09-15] MEDS: FERROUS SULFATE 325MG TAB PO SCH (09:36)
[2022-09-15] MEDS: predniSONE 10MG TAB PO SCH (09:37)
[2022-09-15] MEDS: PERCOCET 5MG/325MG TAB PO PRN (09:37)
[2022-09-15] MEDS: ASCORBIC ACID 250 MG TAB PO SCH (09:38)
[2022-09-15] MEDS: APIXABAN 5 MG TAB (ELIQUIS) PO SCH (09:38)
[2022-09-15] MEDS: CitaloPRAM (CeleXA) 20 MG TAB PO SCH (09:40)
[2022-09-15] MEDS ORDERED: CLIN1GEL22 TOP (10:07)
[2022-09-15] MEDS ORDERED: [UNRECOGNIZED DRUG - CODE] TP (10:07)
[2022-09-15] MEDS ORDERED: OXYC1TAB23 PO (11:46)
[2022-09-15] MEDS ORDERED: CELE20TA PO (11:49)
[2022-09-15] MEDS ORDERED: HYDR50TA70 PO (11:49)
[2022-09-15] MEDS ORDERED: LIDO5OIN19 TOP (13:11)
== END 2022-09-15 15:15 | disposition home or self-care (01) | DRG 813 ==
LOC: M MS5PR 11:57
PROVIDERS: ADMIT Internal Medicine; ATTEND Internal Medicine
DX: T81.31XA Disruption of external operation (surgical) wound, not elsewhere classified, initial encounter (principal); F33.2 Major depressive disorder, recurrent severe without psychotic features; L73.2 Hidradenitis suppurativa; F41.1 Generalized anxiety disorder; Z88.0 Allergy status to penicillin; Z91.040 Latex allergy status; Z79.899 Other long term (current) drug therapy; F17.210 Nicotine dependence, cigarettes, uncomplicated; F10.20 Alcohol dependence, uncomplicated; K21.9 Gastro-esophageal reflux disease without esophagitis; Z79.01 Long term (current) use of anticoagulants; Z91.410 Personal history of adult physical and sexual abuse; F60.3 Borderline personality disorder; Y84.8 Other medical procedures as the cause of abnormal reaction of the patient, or of later complication, without mention of misadventure at the time of the procedure

== ENCOUNTER 2022-10-05 18:51 | Inpatient (IN) | payer OTHER ==
[~2022-10-05] VITALS: Ht 170.2 cm; Wt 96.6 kg
[~2022-10-05 18:51] MED LIST changes: +ELIQ5TAB PO; +HYDR50TA70 PO; +LEVO1TAB39 PO; +LIDO5OIN19 TOP; +MIRA3350 PO; +OXYC1TAB23 PO; +PRED10TA2 PO; +[UNRECOGNIZED DRUG - CODE] TP
[2022-10-05 22:19] LABS: BASO % 0.3 % (0.0-1.0); EOS # 0.1 10^3/uL (0.0-0.5); EOS % 1.2 % (0.0-3.0); HEMOGLOBIN 10.9 g/dl (12.0-15.5); LYMPH # 1.5 10^3/uL (1.5-5.0); LYMPH % 13.5 % (24.0-44.0); MEAN CORPUSCULAR HEMOGLOBIN 24.8 pg (27.0-33.0); MEAN CORPUSCULAR HGB CONC 30.3 g/dl (32.0-36.5); MEAN CORPUSCULAR VOLUME 81.8 fl (80.0-96.0); MONO # 0.9 10^3/uL (0.0-0.8); MONO % 8.5 % (2.0-8.0); NEUTROPHILS # 8.2 10^3/uL (1.5-8.5); PLATELET COUNT, AUTOMATED 612 10^3/uL (150-450); WHITE BLOOD COUNT 10.7 10^3/uL (4.0-10.0)
[2022-10-05 22:42] LABS: BLOOD UREA NITROGEN 11 MG/DL (9-23); CALCIUM LEVEL 8.9 MG/DL (8.5-10.1); CARBON DIOXIDE LEVEL 28 MMOL/L (20-31); CHLORIDE LEVEL 97 MMOL/L (98-107); CREATININE FOR GFR 0.83 MG/DL (0.55-1.30); GLOMERULAR FILTRATION RATE > 60.0 (>60); GLUCOSE, FASTING 89 MG/DL (60-100); POTASSIUM SERUM 4.6 MMOL/L (3.5-5.1); SODIUM LEVEL 135 MMOL/L (136-145)
[2022-10-05] MEDS ORDERED: MORPHINE 4 MG/ML 1ML VIAL IV ONE (22:50)
[2022-10-05] MEDS ORDERED: CEFEPIME HCL 1 GM in D5W MINI-BAG PLUS 50 ML IV ONE (23:00)
[2022-10-05] MEDS ORDERED: VANCOMYCIN HCL 1,500 MG in IV FLUID PLACE HOLDER 1 EA IV ONE (23:00)
[2022-10-05] MEDS ORDERED: PERCOCET PO (23:20)
[2022-10-05] MEDS ORDERED: FERR1TAB8 PO (23:20)
[2022-10-05] MEDS ORDERED: PREG25CA PO (23:20)
[2022-10-05] MEDS ORDERED: CELE40TA PO (23:20)
[2022-10-05] MEDS ORDERED: CLIN1GEL22 TOP (23:20)
[2022-10-05] MEDS ORDERED: HYDR50TA70 PO (23:20)
[2022-10-05] MEDS ORDERED: ASCO250T20 PO (23:20)
[2022-10-05] MEDS ORDERED: MIRA1POW3 PO (23:20)
[2022-10-05] MEDS ORDERED: HOME MED LIST COMPLETE! XX SCH (23:25)
[2022-10-05] MEDS ORDERED: PERCOCET 5MG/325MG TAB PO ONE (23:35)
[2022-10-05] MEDS ORDERED: ACETAMINOPHEN TAB 650MG DOSE (2X325MG) PO PRN (23:45)
[2022-10-05] MEDS ORDERED: SENOKOT S TAB PO PRN (23:55)
[2022-10-05] MEDS ORDERED: PERCOCET 5MG/325MG TAB PO PRN (23:55)
[2022-10-05] MEDS ORDERED: DOCUSATE SODIUM 100MG CAPSULE PO PRN (23:55)
[2022-10-05] MEDS ORDERED: MIRALAX *UNIT DOSE* 17GM PACKET PO PRN (23:55)
[2022-10-05] MEDS ORDERED: hydrOXYzine 50 MG TAB PO PRN (23:55)
[2022-10-06] MEDS ORDERED: VANCOMYCIN HCL 750 MG, VIAL MATE ADAPTER 1 EACH in D5W 250 ML IV ONE ×6
[2022-10-06 01:46] LABS: HCG, SERUM QUALITATIVE NEGATIVE (NEGATIVE)
[2022-10-06 02:22] VITALS: BP 100/50
[2022-10-06 02:39] LABS: RSV AMPLIFICATION NEGATIVE (NEGATIVE)
[2022-10-06] MEDS ORDERED: MORPHINE 2 MG/ML 1ML VIAL IV PRN (03:05)
[2022-10-06] MEDS: cefTAZidime 2 GM in D5W MINI-BAG PLUS 50 ML IV SCH ×3 (03:50→18:52)
[2022-10-06 03:52] VITALS: BP 110/66
[2022-10-06] MEDS: PERCOCET 5MG/325MG TAB PO PRN ×3 (03:52→15:20)
[2022-10-06 05:10] VITALS: BP 119/61
[2022-10-06 06:26] LABS: HEMATOCRIT 29.4 % (36.0-47.0); MEAN CORPUSCULAR HEMOGLOBIN 24.9 pg (27.0-33.0); MEAN CORPUSCULAR HGB CONC 30.6 g/dl (32.0-36.5); MEAN CORPUSCULAR VOLUME 81.2 fl (80.0-96.0); PLATELET COUNT, AUTOMATED 514 10^3/uL (150-450); RED BLOOD COUNT 3.62 10^6/uL (4.00-5.40); WHITE BLOOD COUNT 9.4 10^3/uL (4.0-10.0)
[2022-10-06 06:29] LABS: BLOOD UREA NITROGEN 10 MG/DL (9-23); CALCIUM LEVEL 8.3 MG/DL (8.5-10.1); CARBON DIOXIDE LEVEL 27 MMOL/L (20-31); CHLORIDE LEVEL 97 MMOL/L (98-107); CREATININE FOR GFR 0.78 MG/DL (0.55-1.30); GLOMERULAR FILTRATION RATE > 60.0 (>60); GLUCOSE, FASTING 104 MG/DL (60-100); SODIUM LEVEL 133 MMOL/L (136-145)
[2022-10-06] MEDS ORDERED: VANCOMYCIN HCL 1,000 MG, VIAL MATE ADAPTER 1 EACH in D5W 250 ML IV SCH (08:00)
[2022-10-06] MEDS: FERROUS SULFATE 325MG TAB PO SCH (08:40)
[2022-10-06] MEDS: CLINDAMYCIN TOP 1% SOLN 60ML BTL TOP SCH (08:41)
[2022-10-06] MEDS: APIXABAN 5 MG TAB (ELIQUIS) PO SCH ×2 (08:41→22:39)
[2022-10-06] MEDS: PREGABALIN 25 MG CAP (LYRICA) PO SCH ×3 (08:41→22:38)
[2022-10-06] MEDS: ASCORBIC ACID 250 MG TAB PO SCH ×2 (08:41→22:39)
[2022-10-06] MEDS: CitaloPRAM (CeleXA) 20 MG TAB PO SCH (08:41)
[2022-10-06 14:00] VITALS: BP 114/66
[2022-10-06] MEDS ORDERED: LIDOCAINE 2% JELLY 6ML SYRINGE TOP PRN (15:10)
[2022-10-06] MEDS: VANCOMYCIN HCL 1,000 MG, VIAL MATE ADAPTER 1 EACH in D5W 250 ML IV SCH (16:52)
[2022-10-06 20:30] VITALS: BP_SYST 102; BP_SYST 115; BP_DIAS 65; BP_DIAS 67
[2022-10-07] MEDS: VANCOMYCIN HCL 1,000 MG, VIAL MATE ADAPTER 1 EACH in D5W 250 ML IV SCH (01:22)
[2022-10-07] MEDS: PERCOCET 5MG/325MG TAB PO PRN ×3 (01:27→18:01)
[2022-10-07] MEDS: cefTAZidime 2 GM in D5W MINI-BAG PLUS 50 ML IV SCH ×2 (03:18→11:04)
[2022-10-07 05:20] VITALS: BP 101/59
[2022-10-07] MEDS: CLINDAMYCIN TOP 1% SOLN 60ML BTL TOP SCH ×3 (05:49→20:19)
[2022-10-07 08:14] LABS: HEMATOCRIT 29.9 % (36.0-47.0); MEAN CORPUSCULAR HGB CONC 30.1 g/dl (32.0-36.5); MEAN CORPUSCULAR VOLUME 83.1 fl (80.0-96.0); PLATELET COUNT, AUTOMATED 515 10^3/uL (150-450); WHITE BLOOD COUNT 9.3 10^3/uL (4.0-10.0)
[2022-10-07 08:41] LABS: ALKALINE PHOSPHATASE 95 U/L (46-116); ALT/SGPT 9 U/L (7.0-40); AST/SGOT 9 U/L (<34); BILIRUBIN,TOTAL < 0.2 MG/DL (0.3-1.2); BLOOD UREA NITROGEN 10 MG/DL (9-23); CALCIUM LEVEL 8.1 MG/DL (8.5-10.1); CARBON DIOXIDE LEVEL 30 MMOL/L (20-31); CHLORIDE LEVEL 102 MMOL/L (98-107); CREATININE FOR GFR 0.74 MG/DL (0.55-1.30); GLOMERULAR FILTRATION RATE > 60.0 (>60); GLUCOSE, FASTING 107 MG/DL (60-100); POTASSIUM SERUM 4.2 MMOL/L (3.5-5.1); SODIUM LEVEL 139 MMOL/L (136-145); TOTAL PROTEIN 5.8 G/DL (5.7-8.2)
[2022-10-07] MEDS: FERROUS SULFATE 325MG TAB PO SCH (09:39)
[2022-10-07] MEDS: APIXABAN 5 MG TAB (ELIQUIS) PO SCH ×2 (09:40→20:19)
[2022-10-07] MEDS: CitaloPRAM (CeleXA) 20 MG TAB PO SCH (09:40)
[2022-10-07] MEDS: PREGABALIN 25 MG CAP (LYRICA) PO SCH ×3 (09:40→20:19)
[2022-10-07] MEDS: ASCORBIC ACID 250 MG TAB PO SCH ×2 (09:40→20:19)
[2022-10-07] MEDS ORDERED: VANCOMYCIN HCL 1,000 MG, VIAL MATE ADAPTER 1 EACH in D5W 250 ML IV SCH (10:00)
[2022-10-07] MEDS ORDERED: GLYD10GE TOP (10:20)
[2022-10-07] MEDS ORDERED: PROB250C PO (10:20)
[2022-10-07] MEDS ORDERED: DOXY-444 PO (10:20)
[2022-10-07 14:00] VITALS: BP 108/70
[2022-10-07] MEDS: LACTOBACILLUS ACIDOPHILUS CAP (BACID) PO SCH (16:52)
[2022-10-07] MEDS: DOXYCYCLINE HYCLATE 100MG TABLET PO SCH (18:00)
[2022-10-07] MEDS ORDERED: traZODone 50 MG TAB PO PRN (19:55)
[2022-10-07] MEDS ORDERED: OLANZapine ORAL DISINTEGRATING TAB 5MG PO PRN (19:55)
[2022-10-07] MEDS ORDERED: MAALOX 30 ML SUSP *UDC PO PRN (19:55)
[2022-10-07] MEDS ORDERED: MOM 30ML SUSPENSION UDC PO PRN (19:55)
[2022-10-07] MEDS ORDERED: ACETAMINOPHEN TAB 650MG DOSE (2X325MG) PO PRN (19:55)
[2022-10-07 20:35] VITALS: BP 109/70
[2022-10-08] MEDS: PERCOCET 5MG/325MG TAB PO PRN ×4 (02:06→21:19)
[2022-10-08 02:07] VITALS: BP 115/70
[2022-10-08 06:00] VITALS: BP 115/70
[2022-10-08] MEDS: DOXYCYCLINE HYCLATE 100MG TABLET PO SCH (06:02)
[2022-10-08 06:15] LABS: HEMATOCRIT 29.9 % (36.0-47.0); MEAN CORPUSCULAR HEMOGLOBIN 24.9 pg (27.0-33.0); MEAN CORPUSCULAR HGB CONC 30.1 g/dl (32.0-36.5); MEAN CORPUSCULAR VOLUME 82.6 fl (80.0-96.0); PLATELET COUNT, AUTOMATED 519 10^3/uL (150-450); RED BLOOD COUNT 3.62 10^6/uL (4.00-5.40); WHITE BLOOD COUNT 10.4 10^3/uL (4.0-10.0)
[2022-10-08 06:50] LABS: ALKALINE PHOSPHATASE 96 U/L (46-116); ALT/SGPT 10 U/L (7.0-40); AST/SGOT 13 U/L (<34); BILIRUBIN,TOTAL < 0.2 MG/DL (0.3-1.2); BLOOD UREA NITROGEN 7 MG/DL (9-23); CALCIUM LEVEL 8.6 MG/DL (8.5-10.1); CARBON DIOXIDE LEVEL 30 MMOL/L (20-31); CHLORIDE LEVEL 101 MMOL/L (98-107); CREATININE FOR GFR 0.65 MG/DL (0.55-1.30); GLOMERULAR FILTRATION RATE > 60.0 (>60); GLUCOSE, FASTING 98 MG/DL (60-100); POTASSIUM SERUM 3.9 MMOL/L (3.5-5.1); SODIUM LEVEL 138 MMOL/L (136-145); TOTAL PROTEIN 5.9 G/DL (5.7-8.2)
[2022-10-08] MEDS: PREGABALIN 25 MG CAP (LYRICA) PO SCH ×3 (08:23→21:23)
[2022-10-08] MEDS: FERROUS SULFATE 325MG TAB PO SCH (08:23)
[2022-10-08] MEDS: APIXABAN 5 MG TAB (ELIQUIS) PO SCH ×2 (08:23→21:20)
[2022-10-08] MEDS: LACTOBACILLUS ACIDOPHILUS CAP (BACID) PO SCH ×2 (08:23→17:32)
[2022-10-08] MEDS: ASCORBIC ACID 250 MG TAB PO SCH ×2 (08:24→21:20)
[2022-10-08] MEDS: CitaloPRAM (CeleXA) 20 MG TAB PO SCH (08:24)
[2022-10-08] MEDS: CLINDAMYCIN TOP 1% SOLN 60ML BTL TOP SCH ×2 (08:25→21:21)
[2022-10-08] MEDS: cefTAZidime 2 GM in D5W MINI-BAG PLUS 50 ML IV SCH ×2 (10:37→17:32)
[2022-10-08] MEDS: predniSONE 10MG TAB PO SCH (13:02)
[2022-10-08 20:00] VITALS: BP 100/48
[2022-10-09] MEDS: cefTAZidime 2 GM in D5W MINI-BAG PLUS 50 ML IV SCH ×3 (02:40→17:14)
[2022-10-09] MEDS: PERCOCET 5MG/325MG TAB PO PRN ×4 (05:24→21:30)
[2022-10-09 05:31] VITALS: BP 99/48
[2022-10-09 06:13] LABS: HEMATOCRIT 29.4 % (36.0-47.0); HEMOGLOBIN 8.6 g/dl (12.0-15.5); MEAN CORPUSCULAR HEMOGLOBIN 24.6 pg (27.0-33.0); MEAN CORPUSCULAR HGB CONC 29.3 g/dl (32.0-36.5); PLATELET COUNT, AUTOMATED 466 10^3/uL (150-450); WHITE BLOOD COUNT 7.5 10^3/uL (4.0-10.0)
[2022-10-09 07:36] LABS: ALBUMIN 1.9 G/DL (3.2-5.2); ALKALINE PHOSPHATASE 86 U/L (46-116); ALT/SGPT 15 U/L (7.0-40); AST/SGOT 29 U/L (<34); BILIRUBIN,TOTAL < 0.2 MG/DL (0.3-1.2); BLOOD UREA NITROGEN 7 MG/DL (9-23); CALCIUM LEVEL 7.9 MG/DL (8.5-10.1); CARBON DIOXIDE LEVEL 27 MMOL/L (20-31); CHLORIDE LEVEL 104 MMOL/L (98-107); CREATININE FOR GFR 0.59 MG/DL (0.55-1.30); GLOMERULAR FILTRATION RATE > 60.0 (>60); GLUCOSE, FASTING 91 MG/DL (60-100); POTASSIUM SERUM 4.5 MMOL/L (3.5-5.1); SODIUM LEVEL 139 MMOL/L (136-145); TOTAL PROTEIN 5.6 G/DL (5.7-8.2)
[2022-10-09] MEDS: PREGABALIN 25 MG CAP (LYRICA) PO SCH ×3 (08:48→21:29)
[2022-10-09] MEDS: predniSONE 10MG TAB PO SCH (08:48)
[2022-10-09] MEDS: CitaloPRAM (CeleXA) 20 MG TAB PO SCH (08:48)
[2022-10-09] MEDS: APIXABAN 5 MG TAB (ELIQUIS) PO SCH ×2 (08:48→21:29)
[2022-10-09] MEDS: ASCORBIC ACID 250 MG TAB PO SCH ×2 (08:48→21:29)
[2022-10-09] MEDS: LACTOBACILLUS ACIDOPHILUS CAP (BACID) PO SCH ×2 (08:48→17:14)
[2022-10-09] MEDS: FERROUS SULFATE 325MG TAB PO SCH (08:48)
[2022-10-09] MEDS: CLINDAMYCIN TOP 1% SOLN 60ML BTL TOP SCH ×2 (08:49→21:00)
[2022-10-09 14:00] VITALS: BP 115/60
[2022-10-09 20:00] VITALS: BP 108/63
[2022-10-09 21:32] VITALS: BP 111/69
[2022-10-10] MEDS: cefTAZidime 2 GM in D5W MINI-BAG PLUS 50 ML IV SCH ×4 (01:38→19:44)
[2022-10-10] MEDS: PERCOCET 5MG/325MG TAB PO PRN ×2 (05:16→14:57)
[2022-10-10 06:00] VITALS: BP 114/64
[2022-10-10 06:11] LABS: HEMATOCRIT 29.9 % (36.0-47.0); HEMOGLOBIN 8.8 g/dl (12.0-15.5); MEAN CORPUSCULAR HEMOGLOBIN 24.7 pg (27.0-33.0); MEAN CORPUSCULAR HGB CONC 29.4 g/dl (32.0-36.5); PLATELET COUNT, AUTOMATED 524 10^3/uL (150-450); RED BLOOD COUNT 3.56 10^6/uL (4.00-5.40); WHITE BLOOD COUNT 10.1 10^3/uL (4.0-10.0)
[2022-10-10 06:34] LABS: ALBUMIN 2.1 G/DL (3.2-5.2); ALKALINE PHOSPHATASE 89 U/L (46-116); ALT/SGPT 25 U/L (7.0-40); AST/SGOT 21 U/L (<34); BILIRUBIN,TOTAL < 0.2 MG/DL (0.3-1.2); BLOOD UREA NITROGEN 9 MG/DL (9-23); CALCIUM LEVEL 8.5 MG/DL (8.5-10.1); CARBON DIOXIDE LEVEL 30 MMOL/L (20-31); CHLORIDE LEVEL 103 MMOL/L (98-107); CREATININE FOR GFR 0.54 MG/DL (0.55-1.30); GLOMERULAR FILTRATION RATE > 60.0 (>60); GLUCOSE, FASTING 79 MG/DL (60-100); POTASSIUM SERUM 4.3 MMOL/L (3.5-5.1); SODIUM LEVEL 139 MMOL/L (136-145); TOTAL PROTEIN 5.8 G/DL (5.7-8.2)
[2022-10-10] MEDS: CLINDAMYCIN TOP 1% SOLN 60ML BTL TOP SCH ×2 (09:00→20:37)
[2022-10-10] MEDS: APIXABAN 5 MG TAB (ELIQUIS) PO SCH ×2 (09:22→20:37)
[2022-10-10] MEDS: PREGABALIN 25 MG CAP (LYRICA) PO SCH ×3 (09:22→20:41)
[2022-10-10] MEDS: LACTOBACILLUS ACIDOPHILUS CAP (BACID) PO SCH ×2 (09:22→17:36)
[2022-10-10] MEDS: FERROUS SULFATE 325MG TAB PO SCH (09:22)
[2022-10-10] MEDS: ASCORBIC ACID 250 MG TAB PO SCH ×2 (09:22→20:39)
[2022-10-10] MEDS: CitaloPRAM (CeleXA) 20 MG TAB PO SCH (09:23)
[2022-10-10] MEDS: predniSONE 10MG TAB PO SCH (09:23)
[2022-10-10 14:00] VITALS: BP 119/79
[2022-10-10] MEDS: SENOKOT S TAB PO SCH (14:58)
[2022-10-10] MEDS: MIRALAX *UNIT DOSE* 17GM PACKET PO SCH (14:58)
[2022-10-10] MEDS ORDERED: cefTRIAXone SOD 2GM VIAL IM SCH (19:50)
[2022-10-10 20:00] VITALS: BP 97/51
[2022-10-10] MEDS: DOXYCYCLINE HYCLATE 100MG TABLET PO SCH (20:37)
[2022-10-11 03:24] VITALS: BP 111/55
[2022-10-11] MEDS: PERCOCET 5MG/325MG TAB PO PRN ×2 (03:24→15:47)
[2022-10-11 06:00] VITALS: BP 128/65
[2022-10-11 06:20] LABS: HEMATOCRIT 30.5 % (36.0-47.0); HEMOGLOBIN 8.9 g/dl (12.0-15.5); MEAN CORPUSCULAR HEMOGLOBIN 24.5 pg (27.0-33.0); MEAN CORPUSCULAR HGB CONC 29.2 g/dl (32.0-36.5); MEAN CORPUSCULAR VOLUME 83.8 fl (80.0-96.0); PLATELET COUNT, AUTOMATED 568 10^3/uL (150-450); RED BLOOD COUNT 3.64 10^6/uL (4.00-5.40); WHITE BLOOD COUNT 10.8 10^3/uL (4.0-10.0)
[2022-10-11 06:32] VITALS: BP 90/56
[2022-10-11 06:47] LABS: ALKALINE PHOSPHATASE 88 U/L (46-116); ALT/SGPT 28 U/L (7.0-40); AST/SGOT 30 U/L (<34); BILIRUBIN,TOTAL < 0.2 MG/DL (0.3-1.2); BLOOD UREA NITROGEN 9 MG/DL (9-23); CALCIUM LEVEL 8.2 MG/DL (8.5-10.1); CARBON DIOXIDE LEVEL 30 MMOL/L (20-31); CHLORIDE LEVEL 102 MMOL/L (98-107); GLOMERULAR FILTRATION RATE > 60.0 (>60); GLUCOSE, FASTING 93 MG/DL (60-100); POTASSIUM SERUM 4.1 MMOL/L (3.5-5.1); SODIUM LEVEL 138 MMOL/L (136-145); TOTAL PROTEIN 5.8 G/DL (5.7-8.2)
[2022-10-11] MEDS: CLINDAMYCIN TOP 1% SOLN 60ML BTL TOP SCH ×2 (09:00→21:00)
[2022-10-11] MEDS: SENOKOT S TAB PO SCH (09:00)
[2022-10-11] MEDS: FERROUS SULFATE 325MG TAB PO SCH (09:33)
[2022-10-11] MEDS: predniSONE 10MG TAB PO SCH (09:33)
[2022-10-11] MEDS: CitaloPRAM (CeleXA) 20 MG TAB PO SCH (09:33)
[2022-10-11] MEDS: APIXABAN 5 MG TAB (ELIQUIS) PO SCH ×2 (09:33→21:27)
[2022-10-11] MEDS: MIRALAX *UNIT DOSE* 17GM PACKET PO SCH (09:33)
[2022-10-11] MEDS: PREGABALIN 25 MG CAP (LYRICA) PO SCH ×3 (09:33→21:27)
[2022-10-11] MEDS: LACTOBACILLUS ACIDOPHILUS CAP (BACID) PO SCH ×2 (09:33→18:28)
[2022-10-11] MEDS: ASCORBIC ACID 250 MG TAB PO SCH ×2 (09:33→21:27)
[2022-10-11] MEDS: DOXYCYCLINE HYCLATE 100MG TABLET PO SCH ×2 (09:33→21:27)
[2022-10-11 14:00] VITALS: BP 94/56
[2022-10-11 20:00] VITALS: BP 104/71
[2022-10-12 01:58] VITALS: BP 105/71
[2022-10-12 02:13] VITALS: BP 107/71
[2022-10-12 06:00] VITALS: BP 113/64
[2022-10-12] MEDS: PERCOCET 5MG/325MG TAB PO PRN ×2 (06:03→16:59)
[2022-10-12 06:27] LABS: HEMATOCRIT 30.6 % (36.0-47.0); HEMOGLOBIN 8.9 g/dl (12.0-15.5); MEAN CORPUSCULAR HEMOGLOBIN 24.6 pg (27.0-33.0); MEAN CORPUSCULAR HGB CONC 29.1 g/dl (32.0-36.5); MEAN CORPUSCULAR VOLUME 84.5 fl (80.0-96.0); PLATELET COUNT, AUTOMATED 522 10^3/uL (150-450); RED BLOOD COUNT 3.62 10^6/uL (4.00-5.40)
[2022-10-12 07:03] LABS: ALBUMIN 2.1 G/DL (3.2-5.2); ALKALINE PHOSPHATASE 86 U/L (46-116); ALT/SGPT 29 U/L (7.0-40); AST/SGOT 25 U/L (<34); BILIRUBIN,TOTAL < 0.2 MG/DL (0.3-1.2); BLOOD UREA NITROGEN 12 MG/DL (9-23); CALCIUM LEVEL 8.4 MG/DL (8.5-10.1); CARBON DIOXIDE LEVEL 30 MMOL/L (20-31); CHLORIDE LEVEL 103 MMOL/L (98-107); CREATININE FOR GFR 0.54 MG/DL (0.55-1.30); GLOMERULAR FILTRATION RATE > 60.0 (>60); GLUCOSE, FASTING 85 MG/DL (60-100); POTASSIUM SERUM 4.1 MMOL/L (3.5-5.1); SODIUM LEVEL 139 MMOL/L (136-145); TOTAL PROTEIN 5.6 G/DL (5.7-8.2)
[2022-10-12] MEDS: MIRALAX *UNIT DOSE* 17GM PACKET PO SCH (07:58)
[2022-10-12] MEDS: ASCORBIC ACID 250 MG TAB PO SCH ×2 (07:59→19:48)
[2022-10-12] MEDS: APIXABAN 5 MG TAB (ELIQUIS) PO SCH ×2 (07:59→19:48)
[2022-10-12] MEDS: FERROUS SULFATE 325MG TAB PO SCH (07:59)
[2022-10-12] MEDS: LACTOBACILLUS ACIDOPHILUS CAP (BACID) PO SCH ×2 (07:59→16:59)
[2022-10-12] MEDS: CitaloPRAM (CeleXA) 20 MG TAB PO SCH (07:59)
[2022-10-12] MEDS: DOXYCYCLINE HYCLATE 100MG TABLET PO SCH ×2 (07:59→19:48)
[2022-10-12] MEDS: predniSONE 10MG TAB PO SCH (07:59)
[2022-10-12] MEDS: PREGABALIN 25 MG CAP (LYRICA) PO SCH ×3 (07:59→19:48)
[2022-10-12] MEDS: SENOKOT S TAB PO SCH (08:00)
[2022-10-12] MEDS: CLINDAMYCIN TOP 1% SOLN 60ML BTL TOP SCH ×3 (08:00→21:00)
[2022-10-12 14:00] VITALS: BP 110/60
[2022-10-12 20:00] VITALS: BP 98/41
[2022-10-12 23:40] VITALS: BP 98/56
[2022-10-13 01:30] VITALS: BP 108/59
[2022-10-13] MEDS: PERCOCET 5MG/325MG TAB PO PRN ×3 (01:32→20:06)
[2022-10-13 06:00] VITALS: BP 103/57
[2022-10-13 06:44] LABS: HEMATOCRIT 29.7 % (36.0-47.0); HEMOGLOBIN 8.7 g/dl (12.0-15.5); MEAN CORPUSCULAR HEMOGLOBIN 24.2 pg (27.0-33.0); MEAN CORPUSCULAR HGB CONC 29.3 g/dl (32.0-36.5); MEAN CORPUSCULAR VOLUME 82.7 fl (80.0-96.0); PLATELET COUNT, AUTOMATED 510 10^3/uL (150-450); RED BLOOD COUNT 3.59 10^6/uL (4.00-5.40); WHITE BLOOD COUNT 10.5 10^3/uL (4.0-10.0)
[2022-10-13 07:11] LABS: ALBUMIN 2.2 G/DL (3.2-5.2); ALKALINE PHOSPHATASE 84 U/L (46-116); ALT/SGPT 28 U/L (7.0-40); AST/SGOT 21 U/L (<34); BILIRUBIN,TOTAL < 0.2 MG/DL (0.3-1.2); BLOOD UREA NITROGEN 11 MG/DL (9-23); CALCIUM LEVEL 8.2 MG/DL (8.5-10.1); CARBON DIOXIDE LEVEL 29 MMOL/L (20-31); CHLORIDE LEVEL 103 MMOL/L (98-107); CREATININE FOR GFR 0.52 MG/DL (0.55-1.30); GLOMERULAR FILTRATION RATE > 60.0 (>60); GLUCOSE, FASTING 84 MG/DL (60-100); POTASSIUM SERUM 4.1 MMOL/L (3.5-5.1); SODIUM LEVEL 138 MMOL/L (136-145); TOTAL PROTEIN 5.7 G/DL (5.7-8.2)
[2022-10-13] MEDS: LACTOBACILLUS ACIDOPHILUS CAP (BACID) PO SCH ×2 (08:18→17:53)
[2022-10-13] MEDS: SENOKOT S TAB PO SCH (08:18)
[2022-10-13] MEDS: PREGABALIN 25 MG CAP (LYRICA) PO SCH ×3 (08:18→20:02)
[2022-10-13] MEDS: APIXABAN 5 MG TAB (ELIQUIS) PO SCH ×2 (08:18→20:02)
[2022-10-13] MEDS: FERROUS SULFATE 325MG TAB PO SCH (08:18)
[2022-10-13] MEDS: DOXYCYCLINE HYCLATE 100MG TABLET PO SCH ×2 (08:18→20:02)
[2022-10-13] MEDS: ASCORBIC ACID 250 MG TAB PO SCH ×2 (08:18→20:02)
[2022-10-13] MEDS: predniSONE 10MG TAB PO SCH (08:18)
[2022-10-13] MEDS: CitaloPRAM (CeleXA) 20 MG TAB PO SCH (08:19)
[2022-10-13] MEDS: MIRALAX *UNIT DOSE* 17GM PACKET PO SCH (08:20)
[2022-10-13] MEDS ORDERED: predniSONE 10MG TAB PO ONE (09:45)
[2022-10-13] MEDS: CLINDAMYCIN TOP 1% SOLN 60ML BTL TOP SCH ×2 (09:50→19:41)
[2022-10-13 14:00] VITALS: BP 103/56
[2022-10-13 20:00] VITALS: BP 126/77
[2022-10-14] MEDS: PERCOCET 5MG/325MG TAB PO PRN ×3 (03:00→22:49)
[2022-10-14 06:08] VITALS: BP 109/98
[2022-10-14 08:02] LABS: BASO # 0.1 10^3/uL (0.0-0.2); BASO % 0.7 % (0.0-1.0); EOS # 0.3 10^3/uL (0.0-0.5); EOS % 2.6 % (0.0-3.0); HEMATOCRIT 30.3 % (36.0-47.0); HEMOGLOBIN 9.1 g/dl (12.0-15.5); LYMPH # 2.6 10^3/uL (1.5-5.0); LYMPH % 26.7 % (24.0-44.0); MEAN CORPUSCULAR HEMOGLOBIN 25.1 pg (27.0-33.0); MEAN CORPUSCULAR VOLUME 83.5 fl (80.0-96.0); MONO # 0.7 10^3/uL (0.0-0.8); MONO % 6.9 % (2.0-8.0); NEUTROPHILS # 6.1 10^3/uL (1.5-8.5); NEUTROPHILS % 62.4 % (36.0-66.0); PLATELET COUNT, AUTOMATED 488 10^3/uL (150-450); RED BLOOD COUNT 3.63 10^6/uL (4.00-5.40); WHITE BLOOD COUNT 9.8 10^3/uL (4.0-10.0)
[2022-10-14] MEDS: FERROUS SULFATE 325MG TAB PO SCH (08:17)
[2022-10-14] MEDS: SENOKOT S TAB PO SCH (08:17)
[2022-10-14] MEDS: LACTOBACILLUS ACIDOPHILUS CAP (BACID) PO SCH ×2 (08:17→17:07)
[2022-10-14] MEDS: PREGABALIN 25 MG CAP (LYRICA) PO SCH ×3 (08:17→19:47)
[2022-10-14] MEDS: CitaloPRAM (CeleXA) 20 MG TAB PO SCH (08:17)
[2022-10-14] MEDS: APIXABAN 5 MG TAB (ELIQUIS) PO SCH ×2 (08:18→19:47)
[2022-10-14] MEDS: DOXYCYCLINE HYCLATE 100MG TABLET PO SCH ×2 (08:18→19:47)
[2022-10-14] MEDS: ASCORBIC ACID 250 MG TAB PO SCH ×2 (08:18→19:47)
[2022-10-14] MEDS: predniSONE 20 MG TAB PO SCH (08:18)
[2022-10-14] MEDS: CLINDAMYCIN TOP 1% SOLN 60ML BTL TOP SCH ×2 (08:19→19:40)
[2022-10-14] MEDS: MIRALAX *UNIT DOSE* 17GM PACKET PO SCH (08:19)
[2022-10-14 08:26] LABS: BLOOD UREA NITROGEN 10 MG/DL (9-23); CALCIUM LEVEL 8.4 MG/DL (8.5-10.1); CARBON DIOXIDE LEVEL 30 MMOL/L (20-31); CHLORIDE LEVEL 102 MMOL/L (98-107); CREATININE FOR GFR 0.53 MG/DL (0.55-1.30); GLOMERULAR FILTRATION RATE > 60.0 (>60); GLUCOSE, FASTING 108 MG/DL (60-100); POTASSIUM SERUM 3.6 MMOL/L (3.5-5.1); SODIUM LEVEL 138 MMOL/L (136-145)
[2022-10-14 14:00] VITALS: BP 97/58
[2022-10-14 17:37] VITALS: BP 115/69
[2022-10-14 20:00] VITALS: BP 106/62
[2022-10-15 06:00] VITALS: BP 109/61
[2022-10-15] MEDS: PERCOCET 5MG/325MG TAB PO PRN ×2 (06:02→13:19)
[2022-10-15 06:34] LABS: BLOOD UREA NITROGEN 10 MG/DL (9-23); CALCIUM LEVEL 8.3 MG/DL (8.5-10.1); CARBON DIOXIDE LEVEL 29 MMOL/L (20-31); CHLORIDE LEVEL 103 MMOL/L (98-107); CREATININE FOR GFR 0.51 MG/DL (0.55-1.30); GLOMERULAR FILTRATION RATE > 60.0 (>60); GLUCOSE, FASTING 105 MG/DL (60-100); POTASSIUM SERUM 3.8 MMOL/L (3.5-5.1); SODIUM LEVEL 139 MMOL/L (136-145)
[2022-10-15 06:36] LABS: BASO # 0.1 10^3/uL (0.0-0.2); BASO % 0.7 % (0.0-1.0); EOS # 0.2 10^3/uL (0.0-0.5); EOS % 2.1 % (0.0-3.0); HEMATOCRIT 29.8 % (36.0-47.0); HEMOGLOBIN 8.9 g/dl (12.0-15.5); LYMPH # 3.2 10^3/uL (1.5-5.0); LYMPH % 31.9 % (24.0-44.0); MEAN CORPUSCULAR HEMOGLOBIN 24.7 pg (27.0-33.0); MEAN CORPUSCULAR HGB CONC 29.9 g/dl (32.0-36.5); MEAN CORPUSCULAR VOLUME 82.5 fl (80.0-96.0); MONO # 0.9 10^3/uL (0.0-0.8); MONO % 8.6 % (2.0-8.0); NEUTROPHILS # 5.6 10^3/uL (1.5-8.5); NEUTROPHILS % 56.1 % (36.0-66.0); PLATELET COUNT, AUTOMATED 510 10^3/uL (150-450); RED BLOOD COUNT 3.61 10^6/uL (4.00-5.40)
[2022-10-15] MEDS: LACTOBACILLUS ACIDOPHILUS CAP (BACID) PO SCH (08:48)
[2022-10-15] MEDS: DOXYCYCLINE HYCLATE 100MG TABLET PO SCH (08:49)
[2022-10-15] MEDS: ASCORBIC ACID 250 MG TAB PO SCH (08:49)
[2022-10-15] MEDS: PREGABALIN 25 MG CAP (LYRICA) PO SCH (08:49)
[2022-10-15] MEDS: CitaloPRAM (CeleXA) 20 MG TAB PO SCH (08:49)
[2022-10-15] MEDS: predniSONE 20 MG TAB PO SCH (08:50)
[2022-10-15] MEDS: MIRALAX *UNIT DOSE* 17GM PACKET PO SCH (08:50)
[2022-10-15] MEDS: APIXABAN 5 MG TAB (ELIQUIS) PO SCH (08:50)
[2022-10-15] MEDS: FERROUS SULFATE 325MG TAB PO SCH (08:50)
[2022-10-15] MEDS: CLINDAMYCIN TOP 1% SOLN 60ML BTL TOP SCH (08:51)
[2022-10-15] MEDS: SENOKOT S TAB PO SCH (08:51)
[2022-10-15] MEDS ORDERED: PRED20TA PO (13:35)
[2022-10-15 14:00] VITALS: BP 115/64
== END 2022-10-15 15:50 | disposition home or self-care (01) | DRG 385 ==
LOC: M ED 18:51 → M ED INP 23:44 → M MSPAV 10-06 02:20
PROVIDERS: ADMIT Internal Medicine; ATTEND Student in an Organized Health Care Education/Training Program
DX: L73.2 Hidradenitis suppurativa (principal); L89.159 Pressure ulcer of sacral region, unspecified stage; R45.851 Suicidal ideations; F41.9 Anxiety disorder, unspecified; F32.9 Major depressive disorder, single episode, unspecified; Z88.0 Allergy status to penicillin; Z91.040 Latex allergy status; Z79.899 Other long term (current) drug therapy; Z79.01 Long term (current) use of anticoagulants; Z86.718 Personal history of other venous thrombosis and embolism; F60.89 Other specific personality disorders; F34.1 Dysthymic disorder

== ENCOUNTER 2022-10-19 05:10 | Day surgery (SDC) | payer OTHER ==
[~2022-10-19] VITALS: Ht 170.2 cm; Wt 96.2 kg
[~2022-10-19 05:10] MED LIST changes: +CELE40TA PO; +DOXY-444 PO; +GLYD10GE TOP; +PERCOCET PO; +PRED20TA PO; +PREG25CA PO; +PROB250C PO
[2022-10-19] MEDS ORDERED: NS 1,000 ML IV ONE (07:50)
[2022-10-19] MEDS ORDERED: ACETAMINOPHEN 1000MG 100ML IV BAG IV ONE (07:55)
[2022-10-19] MEDS ORDERED: CIPROFLOXACIN 400 MG in IV 1 EA IV ONE (08:15)
[2022-10-19 09:19] LABS: BASO # 0.1 10^3/uL (0.0-0.2); BASO % 0.4 % (0.0-1.0); EOS # 0.1 10^3/uL (0.0-0.5); EOS % 0.9 % (0.0-3.0); HEMOGLOBIN 9.8 g/dl (12.0-15.5); LYMPH # 1.9 10^3/uL (1.5-5.0); LYMPH % 14.1 % (24.0-44.0); MEAN CORPUSCULAR HEMOGLOBIN 24.9 pg (27.0-33.0); MEAN CORPUSCULAR HGB CONC 30.6 g/dl (32.0-36.5); MEAN CORPUSCULAR VOLUME 81.2 fl (80.0-96.0); MONO % 7.5 % (2.0-8.0); NEUTROPHILS # 10.1 10^3/uL (1.5-8.5); NEUTROPHILS % 76.6 % (36.0-66.0); PLATELET COUNT, AUTOMATED 515 10^3/uL (150-450); RED BLOOD COUNT 3.94 10^6/uL (4.00-5.40); WHITE BLOOD COUNT 13.2 10^3/uL (4.0-10.0)
[2022-10-19 09:30] LABS: BLOOD UREA NITROGEN 8 MG/DL (9-23); CALCIUM LEVEL 8.2 MG/DL (8.5-10.1); CARBON DIOXIDE LEVEL 27 MMOL/L (20-31); CHLORIDE LEVEL 101 MMOL/L (98-107); CREATININE FOR GFR 0.64 MG/DL (0.55-1.30); GLOMERULAR FILTRATION RATE > 60.0 (>60); GLUCOSE, FASTING 105 MG/DL (60-100); POTASSIUM SERUM 4.5 MMOL/L (3.5-5.1); SODIUM LEVEL 137 MMOL/L (136-145)
[2022-10-19] MEDS ORDERED: ONDANSETRON 4MG 2ML VIAL ONE ×2 (10:36→13:38)
[2022-10-19] MEDS ORDERED: LIDOCAINE 2% 100MG/5ML SDV (FOR ANES.) ONE (10:36)
[2022-10-19] MEDS ORDERED: propofoL 200 MG/20 ML VIAL ONE (10:36)
[2022-10-19] MEDS ORDERED: fentaNYL 100 MCG/2 ML INJECTION ONE ×2 (12:35→13:11)
[2022-10-19] MEDS ORDERED: MIDAZOLAM INJ 2MG/2ML VIAL ONE (12:35)
[2022-10-19] MEDS ORDERED: CLINDAMYCIN 900MG/50ML PREMIX BAG As Ordered ONE (13:25)
[2022-10-19] MEDS ORDERED: LIDOCAINE 1% SDV 30ML VIAL As Ordered ONE (13:29)
[2022-10-19] MEDS ORDERED: ONDANSETRON 4MG 2ML VIAL IV PRN (13:55)
[2022-10-19] MEDS ORDERED: HYDROMORPHONE HCL 0.5 MG/ 0.5 ML SYRINGE IV PRN (13:55)
[2022-10-19] MEDS ORDERED: LR 1,000 ML IV SCH (13:55)
[2022-10-19] MEDS: fentaNYL 100 MCG/2 ML INJECTION IV PRN ×4 (14:13→14:36)
[2022-10-19] MEDS: oxyCODONE 5MG TAB PO PRN ×2 (14:17→14:49)
[2022-10-19 16:02] VITALS: BP 129/70
[2022-10-20] MEDS ORDERED: DOXY100T27 PO (06:53)
[2022-10-20] MEDS ORDERED: PRED20TA PO (06:53)
== END 2022-10-19 16:06 | disposition home or self-care (01) ==
LOC: M ED 05:10 → M SDC 05:11 → M ED 11:45 → M SDC 16:06
PROVIDERS: ATTEND Urology
DX: L73.2 Hidradenitis suppurativa (principal); D64.9 Anemia, unspecified; Z79.01 Long term (current) use of anticoagulants; Z79.52 Long term (current) use of systemic steroids; Z79.899 Other long term (current) drug therapy; Z88.0 Allergy status to penicillin; Z91.040 Latex allergy status; F17.200 Nicotine dependence, unspecified, uncomplicated; Z86.718 Personal history of other venous thrombosis and embolism; F43.10 Post-traumatic stress disorder, unspecified; F41.9 Anxiety disorder, unspecified; F32.A Depression, unspecified
CPT/HCPCS: 36415; 51040; 80047; 80048; 81001; 83605; 85025; 87040; 87635; 96365; 96375; 99284; J0131; J0744; J1100; J2250; J2405; J3010

== ENCOUNTER 2022-10-20 01:45 | Observation (INO) | payer OTHER ==
[~2022-10-20] VITALS: Ht 170.2 cm; Wt 97.7 kg
[2022-10-20] MEDS: fentaNYL 100 MCG/2 ML INJECTION IV PRN ×2 (02:43→04:50)
[2022-10-20] MEDS ORDERED: LORazepam 2 MG/ML 1ML VIAL IV STA (02:50)
[2022-10-20 03:09] LABS: BASO % 0.3 % (0.0-1.0); EOS % 0.1 % (0.0-3.0); HEMATOCRIT 33.8 % (36.0-47.0); HEMOGLOBIN 10.3 g/dl (12.0-15.5); LYMPH # 1.4 10^3/uL (1.5-5.0); LYMPH % 10.5 % (24.0-44.0); MEAN CORPUSCULAR HEMOGLOBIN 24.7 pg (27.0-33.0); MEAN CORPUSCULAR HGB CONC 30.5 g/dl (32.0-36.5); MEAN CORPUSCULAR VOLUME 81.1 fl (80.0-96.0); MONO # 1.2 10^3/uL (0.0-0.8); MONO % 8.6 % (2.0-8.0); NEUTROPHILS # 10.9 10^3/uL (1.5-8.5); NEUTROPHILS % 80.1 % (36.0-66.0); RED BLOOD COUNT 4.17 10^6/uL (4.00-5.40); WHITE BLOOD COUNT 13.6 10^3/uL (4.0-10.0)
[2022-10-20 03:10] LABS: PLATELET COUNT, AUTOMATED 636 10^3/uL (150-450)
[2022-10-20 03:35] LABS: ALBUMIN 2.7 G/DL (3.2-5.2); ALKALINE PHOSPHATASE 104 U/L (46-116); ALT/SGPT 18 U/L (7.0-40); AST/SGOT 14 U/L (<34); BILIRUBIN,DIRECT 0.1 MG/DL (<0.4); BILIRUBIN,TOTAL 0.4 MG/DL (0.3-1.2); BLOOD UREA NITROGEN 7 MG/DL (9-23); CALCIUM LEVEL 8.3 MG/DL (8.5-10.1); CARBON DIOXIDE LEVEL 23 MMOL/L (20-31); CHLORIDE LEVEL 103 MMOL/L (98-107); CREATININE FOR GFR 0.61 MG/DL (0.55-1.30); GLOMERULAR FILTRATION RATE > 60.0 (>60); GLUCOSE, FASTING 88 MG/DL (60-100); POTASSIUM SERUM 4.3 MMOL/L (3.5-5.1); SODIUM LEVEL 135 MMOL/L (136-145)
[2022-10-20 03:40] LABS: RSV AMPLIFICATION NEGATIVE (NEGATIVE)
[2022-10-20 04:09] LABS: TOTAL PROTEIN 6.8 G/DL (5.7-8.2)
[2022-10-20] MEDS ORDERED: NS 1,000 ML IV ONE (05:10)
[2022-10-20] MEDS ORDERED: KETOROLAC 30 MG/ML 1ML VIAL IV ONE (05:10)
[2022-10-20] MEDS ORDERED: PRED20TA PO (06:53)
[2022-10-20] MEDS ORDERED: DOXY100T27 PO (06:53)
[2022-10-20] MEDS ORDERED: HOME MED LIST COMPLETE! XX SCH (06:55)
[2022-10-20] MEDS ORDERED: oxyCODONE 5MG TAB PO ONE (07:20)
[2022-10-20] MEDS ORDERED: ACETAMINOPHEN TAB 650MG DOSE (2X325MG) PO PRN (08:35)
[2022-10-20] MEDS ORDERED: MORPHINE 2 MG/ML 1ML VIAL IV PRN (08:35)
[2022-10-20] MEDS: oxyBUTYnin 5 MG TAB PO SCH ×2 (09:00→20:42)
[2022-10-20] MEDS ORDERED: MIRALAX *UNIT DOSE* 17GM PACKET PO PRN (09:30)
[2022-10-20] MEDS ORDERED: hydrOXYzine 50 MG TAB PO PRN (09:30)
[2022-10-20] MEDS ORDERED: PERCOCET 5MG/325MG TAB PO PRN (09:30)
[2022-10-20] MEDS ORDERED: SENOKOT S TAB PO PRN (09:30)
[2022-10-20] MEDS ORDERED: DOCUSATE SODIUM 100MG CAPSULE PO PRN (09:30)
[2022-10-20] MEDS: DOXYCYCLINE HYCLATE 100MG TABLET PO SCH ×2 (10:02→20:43)
[2022-10-20] MEDS: PREGABALIN 25 MG CAP (LYRICA) PO PRN ×2 (10:02→20:42)
[2022-10-20] MEDS: predniSONE 20 MG TAB PO SCH (10:03)
[2022-10-20] MEDS: FERROUS SULFATE 325MG TAB PO SCH (10:03)
[2022-10-20] MEDS: CitaloPRAM (CeleXA) 20 MG TAB PO SCH (10:03)
[2022-10-20] MEDS: HEPARIN SOD (PORCINE) 5000UNITS/ML 1ML VIAL/SYRINGE SC SCH ×2 (14:00→20:43)
[2022-10-20 16:00] VITALS: BP 110/60
[2022-10-20] MEDS: PERCOCET 5MG/325MG TAB PO PRN ×2 (16:55→22:39)
[2022-10-20] MEDS: LIDOCAINE 2% JELLY 6ML SYRINGE TOP PRN (18:12)
[2022-10-20 20:30] VITALS: BP 98/56
[2022-10-20] MEDS: CLINDAMYCIN TOP 1% SOLN 60ML BTL TOP SCH (20:31)
[2022-10-20] MEDS: ASCORBIC ACID 250 MG TAB PO SCH (20:42)
[2022-10-20 22:28] VITALS: BP 106/64
[2022-10-20 23:38] VITALS: BP 104/76
[2022-10-21] MEDS: LIDOCAINE 2% JELLY 6ML SYRINGE TOP PRN ×2 (02:13→20:15)
[2022-10-21] MEDS: HEPARIN SOD (PORCINE) 5000UNITS/ML 1ML VIAL/SYRINGE SC SCH ×2 (02:51→13:43)
[2022-10-21 03:20] VITALS: BP 112/78
[2022-10-21] MEDS ORDERED: oxyCODONE 5MG TAB PO ONE ×2 (04:00→22:15)
[2022-10-21 04:50] VITALS: BP 98/58
[2022-10-21 06:16] LABS: BASO # 0.1 10^3/uL (0.0-0.2); BASO % 0.6 % (0.0-1.0); EOS # 0.1 10^3/uL (0.0-0.5); HEMATOCRIT 28.4 % (36.0-47.0); HEMOGLOBIN 8.4 g/dl (12.0-15.5); LYMPH # 2.7 10^3/uL (1.5-5.0); MEAN CORPUSCULAR HEMOGLOBIN 24.5 pg (27.0-33.0); MEAN CORPUSCULAR HGB CONC 29.6 g/dl (32.0-36.5); MEAN CORPUSCULAR VOLUME 82.8 fl (80.0-96.0); MONO % 9.4 % (2.0-8.0); NEUTROPHILS # 6.9 10^3/uL (1.5-8.5); NEUTROPHILS % 63.6 % (36.0-66.0); PLATELET COUNT, AUTOMATED 454 10^3/uL (150-450); RED BLOOD COUNT 3.43 10^6/uL (4.00-5.40); WHITE BLOOD COUNT 10.8 10^3/uL (4.0-10.0)
[2022-10-21 06:49] LABS: ALBUMIN 2.4 G/DL (3.2-5.2); ALKALINE PHOSPHATASE 78 U/L (46-116); ALT/SGPT 15 U/L (7.0-40); AST/SGOT 8 U/L (<34); BILIRUBIN,TOTAL 0.2 MG/DL (0.3-1.2); BLOOD UREA NITROGEN 11 MG/DL (9-23); CALCIUM LEVEL 8.8 MG/DL (8.5-10.1); CARBON DIOXIDE LEVEL 27 MMOL/L (20-31); CHLORIDE LEVEL 103 MMOL/L (98-107); CREATININE FOR GFR 1.16 MG/DL (0.55-1.30); GLOMERULAR FILTRATION RATE > 60.0 (>60); GLUCOSE, FASTING 83 MG/DL (60-100); MAGNESIUM LEVEL 1.9 MG/DL (1.8-2.4); POTASSIUM SERUM 4.1 MMOL/L (3.5-5.1); SODIUM LEVEL 138 MMOL/L (136-145); TOTAL PROTEIN 5.9 G/DL (5.7-8.2)
[2022-10-21] MEDS: oxyBUTYnin 5 MG TAB PO SCH ×2 (08:18→20:15)
[2022-10-21] MEDS: DOXYCYCLINE HYCLATE 100MG TABLET PO SCH ×2 (08:18→20:14)
[2022-10-21] MEDS: CitaloPRAM (CeleXA) 20 MG TAB PO SCH (08:20)
[2022-10-21] MEDS: FERROUS SULFATE 325MG TAB PO SCH (08:20)
[2022-10-21] MEDS: ASCORBIC ACID 250 MG TAB PO SCH ×2 (08:20→20:14)
[2022-10-21] MEDS: predniSONE 20 MG TAB PO SCH (08:20)
[2022-10-21] MEDS: PERCOCET 5MG/325MG TAB PO PRN ×2 (08:30→15:57)
[2022-10-21] MEDS ORDERED: NS 500 ML IV ONE (08:45)
[2022-10-21] MEDS: CLINDAMYCIN TOP 1% SOLN 60ML BTL TOP SCH ×2 (09:00→20:16)
[2022-10-21 10:30] VITALS: BP 104/48
[2022-10-21] MEDS: PREGABALIN 25 MG CAP (LYRICA) PO PRN (13:42)
[2022-10-21] MEDS: SIMETHICONE 80MG CHEW TAB PO PRN ×2 (13:43→22:09)
[2022-10-21 14:00] VITALS: BP 98/55
[2022-10-21] MEDS: APIXABAN 5 MG TAB (ELIQUIS) PO SCH ×2 (14:22→20:15)
[2022-10-21] MEDS: LACTULOSE 20GM/30ML SYRUP UDC PO SCH (17:48)
[2022-10-21 20:00] VITALS: BP 122/65
[2022-10-21 22:25] VITALS: BP 127/66
[2022-10-22 00:54] VITALS: BP 119/63
[2022-10-22] MEDS: PERCOCET 5MG/325MG TAB PO PRN ×2 (00:57→06:44)
[2022-10-22 06:00] VITALS: BP 113/67
[2022-10-22] MEDS: LACTULOSE 20GM/30ML SYRUP UDC PO SCH ×3 (06:02→11:38)
[2022-10-22 07:12] LABS: BASO # 0.1 10^3/uL (0.0-0.2); BASO % 0.5 % (0.0-1.0); EOS # 0.1 10^3/uL (0.0-0.5); EOS % 0.9 % (0.0-3.0); HEMATOCRIT 31.7 % (36.0-47.0); HEMOGLOBIN 9.2 g/dl (12.0-15.5); LYMPH # 2.5 10^3/uL (1.5-5.0); LYMPH % 23.6 % (24.0-44.0); MEAN CORPUSCULAR HEMOGLOBIN 24.5 pg (27.0-33.0); MEAN CORPUSCULAR VOLUME 84.5 fl (80.0-96.0); MONO # 0.9 10^3/uL (0.0-0.8); MONO % 8.4 % (2.0-8.0); NEUTROPHILS % 66.2 % (36.0-66.0); PLATELET COUNT, AUTOMATED 468 10^3/uL (150-450); RED BLOOD COUNT 3.75 10^6/uL (4.00-5.40); WHITE BLOOD COUNT 10.5 10^3/uL (4.0-10.0)
[2022-10-22 07:42] LABS: ALBUMIN 2.4 G/DL (3.2-5.2); ALKALINE PHOSPHATASE 78 U/L (46-116); ALT/SGPT 10 U/L (7.0-40); AST/SGOT 9 U/L (<34); BILIRUBIN,TOTAL < 0.2 MG/DL (0.3-1.2); BLOOD UREA NITROGEN 12 MG/DL (9-23); CALCIUM LEVEL 8.4 MG/DL (8.5-10.1); CARBON DIOXIDE LEVEL 26 MMOL/L (20-31); CHLORIDE LEVEL 104 MMOL/L (98-107); CREATININE FOR GFR 1.11 MG/DL (0.55-1.30); GLOMERULAR FILTRATION RATE > 60.0 (>60); GLUCOSE, FASTING 73 MG/DL (60-100); MAGNESIUM LEVEL 1.7 MG/DL (1.8-2.4); POTASSIUM SERUM 4.2 MMOL/L (3.5-5.1); SODIUM LEVEL 139 MMOL/L (136-145); TOTAL PROTEIN 5.8 G/DL (5.7-8.2)
[2022-10-22 08:00] VITALS: BP 119/59
[2022-10-22] MEDS ORDERED: MAG SULF 1GM/100ML (MAG RUN) 1 GM in IV 1 EA IV ONE (08:00)
[2022-10-22] MEDS: ASCORBIC ACID 250 MG TAB PO SCH (09:45)
[2022-10-22] MEDS: DOXYCYCLINE HYCLATE 100MG TABLET PO SCH (09:45)
[2022-10-22] MEDS: CitaloPRAM (CeleXA) 20 MG TAB PO SCH (09:46)
[2022-10-22] MEDS: predniSONE 20 MG TAB PO SCH (09:46)
[2022-10-22] MEDS: oxyBUTYnin 5 MG TAB PO SCH (09:46)
[2022-10-22] MEDS: FERROUS SULFATE 325MG TAB PO SCH (09:46)
[2022-10-22] MEDS: APIXABAN 5 MG TAB (ELIQUIS) PO SCH (09:47)
[2022-10-22] MEDS: CLINDAMYCIN TOP 1% SOLN 60ML BTL TOP SCH (09:48)
[2022-10-22] MEDS ORDERED: PERCOCET PO ×2 (11:31→12:04)
[2022-10-22] MEDS: SIMETHICONE 80MG CHEW TAB PO PRN (11:37)
[2022-10-22] MEDS: PREGABALIN 25 MG CAP (LYRICA) PO PRN (11:37)
[2022-10-22] MEDS ORDERED: LACT20EL PO (12:02)
[2022-10-22] MEDS ORDERED: MAGNESIUM OXIDE 400MG TAB (MAG-OX) PO ONE (12:05)
[2022-10-22 14:00] VITALS: BP 123/72
[2022-10-22] MEDS ORDERED: PERCOCET 5MG/325MG TAB PO PRN (14:17)
[2022-10-22] MEDS ORDERED: ELIQ5TAB PO (14:22)
== END 2022-10-22 16:24 | disposition home or self-care (01) ==
LOC: EDBD 01:45 → M ED 01:45 → M ED INP 09:30 → ENRESERV 14:13 → M MSPAV 15:52
PROVIDERS: ADMIT Internal Medicine; ATTEND Internal Medicine
DX: G89.18 Other acute postprocedural pain (principal); F11.90 Opioid use, unspecified, uncomplicated; L73.2 Hidradenitis suppurativa; F41.9 Anxiety disorder, unspecified; F32.A Depression, unspecified; R79.89 Other specified abnormal findings of blood chemistry; Z86.718 Personal history of other venous thrombosis and embolism; Z79.01 Long term (current) use of anticoagulants; Z79.2 Long term (current) use of antibiotics; Z79.52 Long term (current) use of systemic steroids; Z79.899 Other long term (current) drug therapy; Z91.040 Latex allergy status; Z88.0 Allergy status to penicillin
CPT/HCPCS: 36415; 74018; 74176; 80048; 80053; 80076; 81001; 83605; 83735; 85025; 87086; 87631; 93041; 96361; 96374; 96375; 96376; 97161; 99285; J1885; J3010; J3475; J7512

== ENCOUNTER 2023-01-06 13:45 | Inpatient (IN) | payer MEDICAID, OTHER ==
[~2023-01-06] VITALS: Ht 170.2 cm; Wt 96.2 kg
[~2023-01-06 13:45] MED LIST changes: +ABIL1TAB11 PO; +ACET1TAB55 PO; +BALMOINT60 TOP; +Benzocaine Gel TOP; +CEPH500C PO; +DOXY100T27 PO; +GABA-1171 PO; +LACT20EL PO; +MAGN400T2 PO; +PANT40TA29 PO; +REST7.5C8 PO; +VENL75CA47 PO; +XARE10TA PO
[2023-01-06] MEDS ORDERED: MOM 30ML SUSPENSION UDC PO PRN (13:50)
[2023-01-06] MEDS ORDERED: MAALOX 30 ML SUSP *UDC PO PRN (13:50)
[2023-01-06] MEDS ORDERED: ACETAMINOPHEN TAB 650MG DOSE (2X325MG) PO PRN ×2 (13:50→17:35)
[2023-01-06] MEDS ORDERED: HOME MED LIST COMPLETE! XX SCH (15:40)
[2023-01-06 16:57] VITALS: BP 132/59; TEMP 98.3; O2SAT 99
[2023-01-06] MEDS ORDERED: hydrOXYzine 50 MG TAB PO PRN (17:35)
[2023-01-06] MEDS ORDERED: PREGABALIN 25 MG CAP (LYRICA) PO PRN (17:35)
[2023-01-06] MEDS: LACTOBACILLUS ACIDOPHILUS CAP (BACID) PO SCH (18:19)
[2023-01-06] MEDS: RIVAROXABAN 10MG TAB (XARELTO) PO SCH (18:27)
[2023-01-06] MEDS: MAGNESIUM OXIDE 400MG TAB (MAG-OX) PO SCH (20:54)
[2023-01-06] MEDS: DOXYCYCLINE HYCLATE 100MG TABLET PO SCH (20:54)
[2023-01-06] MEDS: GABAPENTIN 100 MG CAP PO SCH (20:54)
[2023-01-06] MEDS: TEMAZEPAM 7.5 MG CAP PO PRN (20:54)
[2023-01-06] MEDS: ASCORBIC ACID 250 MG TAB PO SCH (20:55)
[2023-01-06] MEDS ORDERED: BENZOCAINE 10% 9GM TUBE (ANBESOL) TOP PRN (21:00)
[2023-01-06] MEDS ORDERED: CEPHALEXIN 500 MG CAP PO ONE (22:00)
[2023-01-06] MEDS: PERCOCET 5MG/325MG TAB PO PRN (23:45)
[2023-01-07 05:31] VITALS: BP 96/60; TEMP 96.9; O2SAT 100
[2023-01-07] MEDS: CEPHALEXIN 500 MG CAP PO SCH ×3 (05:43→18:14)
[2023-01-07] MEDS: LACTOBACILLUS ACIDOPHILUS CAP (BACID) PO SCH ×3 (08:52→18:14)
[2023-01-07] MEDS: BALMEX CREAM 60GM TOP SCH (09:00)
[2023-01-07] MEDS: ASCORBIC ACID 250 MG TAB PO SCH ×2 (09:00→20:28)
[2023-01-07] MEDS: predniSONE 20 MG TAB PO SCH (09:01)
[2023-01-07] MEDS: PANTOPRAZOLE 40MG TAB (PROTONIX) PO SCH (09:02)
[2023-01-07] MEDS: FERROUS SULFATE 325MG TAB PO SCH (09:02)
[2023-01-07] MEDS: CitaloPRAM (CeleXA) 20 MG TAB PO SCH (09:02)
[2023-01-07] MEDS: GABAPENTIN 100 MG CAP PO SCH ×3 (09:02→20:28)
[2023-01-07] MEDS: VENLAFAXINE **XR** 75MG CAPSULE PO SCH (09:02)
[2023-01-07] MEDS: MAGNESIUM OXIDE 400MG TAB (MAG-OX) PO SCH ×2 (09:02→20:29)
[2023-01-07] MEDS: DOXYCYCLINE HYCLATE 100MG TABLET PO SCH ×2 (09:02→20:28)
[2023-01-07] MEDS: PERCOCET 5MG/325MG TAB PO PRN ×2 (09:04→20:31)
[2023-01-07] MEDS: MIDODRINE 5 MG TAB PO SCH ×2 (12:00→17:00)
[2023-01-07 12:28] VITALS: BP 110/64
[2023-01-07 17:10] VITALS: BP 129/58
[2023-01-07] MEDS: RIVAROXABAN 10MG TAB (XARELTO) PO SCH (18:14)
[2023-01-07 18:33] VITALS: BP 145/62; TEMP 97.7; O2SAT 98
[2023-01-07] MEDS: TEMAZEPAM 7.5 MG CAP PO PRN (20:28)
[2023-01-08] MEDS: CEPHALEXIN 500 MG CAP PO SCH ×3 (00:06→12:00)
[2023-01-08] MEDS: PERCOCET 5MG/325MG TAB PO PRN (04:14)
[2023-01-08 06:03] VITALS: BP 139/69; TEMP 97.8; O2SAT 100
[2023-01-08] MEDS ORDERED: MAGN400T2 PO (07:07)
[2023-01-08] MEDS ORDERED: ABIL1TAB11 PO (07:07)
[2023-01-08] MEDS ORDERED: PANT40TA29 PO (07:07)
[2023-01-08] MEDS ORDERED: PRED20TA PO (07:07)
[2023-01-08] MEDS ORDERED: GABA-1171 PO (07:07)
[2023-01-08] MEDS ORDERED: XARE10TA PO (07:07)
[2023-01-08] MEDS ORDERED: PERCOCET PO (07:07)
[2023-01-08] MEDS ORDERED: CELE20TA PO (07:07)
[2023-01-08] MEDS ORDERED: CEPH500C PO (07:07)
[2023-01-08] MEDS ORDERED: RISATAB3 PO (07:07)
[2023-01-08] MEDS ORDERED: VENL75CA47 PO (07:07)
[2023-01-08] MEDS ORDERED: HYDR50TA70 PO (07:07)
[2023-01-08] MEDS ORDERED: ASCO250T20 PO (07:07)
[2023-01-08] MEDS ORDERED: PREG25CA PO (07:07)
[2023-01-08] MEDS ORDERED: FERR1TAB8 PO (07:07)
[2023-01-08] MEDS ORDERED: REST7.5C8 PO (07:07)
[2023-01-08] MEDS ORDERED: DOXY100T27 PO (07:07)
[2023-01-08] MEDS ORDERED: BALMOINT60 TOP (07:07)
[2023-01-08] MEDS: MAGNESIUM OXIDE 400MG TAB (MAG-OX) PO SCH (08:29)
[2023-01-08] MEDS: GABAPENTIN 100 MG CAP PO SCH (08:29)
[2023-01-08] MEDS: LACTOBACILLUS ACIDOPHILUS CAP (BACID) PO SCH ×2 (08:29→12:11)
[2023-01-08] MEDS: PANTOPRAZOLE 40MG TAB (PROTONIX) PO SCH (08:29)
[2023-01-08] MEDS: FERROUS SULFATE 325MG TAB PO SCH (08:30)
[2023-01-08] MEDS: predniSONE 20 MG TAB PO SCH (08:30)
[2023-01-08] MEDS: CitaloPRAM (CeleXA) 20 MG TAB PO SCH (08:30)
[2023-01-08] MEDS: DOXYCYCLINE HYCLATE 100MG TABLET PO SCH (08:30)
[2023-01-08] MEDS: VENLAFAXINE **XR** 75MG CAPSULE PO SCH (08:30)
[2023-01-08] MEDS: ASCORBIC ACID 250 MG TAB PO SCH (08:30)
[2023-01-08] MEDS: BALMEX CREAM 60GM TOP SCH (08:34)
== END 2023-01-08 12:01 | disposition home or self-care (01) | DRG 754 ==
LOC: M PSY 15:50
PROVIDERS: ADMIT Psychiatry & Neurology Psychiatry; ATTEND Student in an Organized Health Care Education/Training Program
DX: F32.9 Major depressive disorder, single episode, unspecified (principal); I95.9 Hypotension, unspecified; F43.10 Post-traumatic stress disorder, unspecified; F17.200 Nicotine dependence, unspecified, uncomplicated; F41.1 Generalized anxiety disorder; F31.9 Bipolar disorder, unspecified; F60.3 Borderline personality disorder; Z88.0 Allergy status to penicillin; Z91.040 Latex allergy status; Z79.899 Other long term (current) drug therapy; E66.9 Obesity, unspecified; Z68.33 Body mass index [BMI] 33.0-33.9, adult; Z79.01 Long term (current) use of anticoagulants; E86.0 Dehydration

== ENCOUNTER 2023-02-08 21:12 | Emergency (ER) | payer OTHER ==
[~2023-02-08] VITALS: Ht 170.2 cm; Wt 122.7 kg
[2023-02-08 21:13] VITALS: TEMP 97.8; O2SAT 98
[2023-02-09] MEDS ORDERED: BACTRIM 160MG/800MG DS TAB PO ONE (00:25)
[2023-02-09 01:00] VITALS: BP 125/58
[2023-02-09] MEDS ORDERED: ONDANSETRON 4MG ORAL DISINTEGRATING TAB PO ONE (01:00)
[2023-02-09] MEDS ORDERED: BACT800T5 PO (01:45)
[2023-02-09] MEDS ORDERED: ONDA4TAB6 PO (01:58)
[2023-02-10] MEDS ORDERED: BACT800T5 PO (10:52)
[2023-02-10] MEDS ORDERED: ONDA4TAB6 PO (10:52)
[2023-02-12] MEDS ORDERED: LEVO1TAB38 PO (08:54)
[2023-02-13] MEDS ORDERED: ASCO250T20 PO (01:06)
[2023-02-13] MEDS ORDERED: ARIP1TAB6 PO (01:06)
[2023-02-13] MEDS ORDERED: GABA-1171 PO (01:06)
[2023-02-13] MEDS ORDERED: PANT-23 PO (01:06)
[2023-02-13] MEDS ORDERED: PREG25CA PO (01:06)
[2023-02-13] MEDS ORDERED: MAGN400T2 PO (01:06)
[2023-02-13] MEDS ORDERED: PERCOCET PO (01:06)
[2023-02-13] MEDS ORDERED: FERR1TAB8 PO (01:06)
[2023-02-13] MEDS ORDERED: PRED20TA PO (01:06)
[2023-02-13] MEDS ORDERED: VENL75CA47 PO (01:06)
[2023-02-13] MEDS ORDERED: HYDR50TA70 PO (01:06)
[2023-02-13] MEDS ORDERED: ONDA4TAB6 PO (01:06)
[2023-02-13] MEDS ORDERED: REST7.5C8 PO (01:06)
[2023-02-13] MEDS ORDERED: CITA20TA6 PO (01:06)
[2023-02-13] MEDS ORDERED: RISATAB3 PO (01:06)
[2023-02-13] MEDS ORDERED: BACTDSTA PO (01:06)
== END 2023-02-09 02:00 | disposition home or self-care (01) ==
LOC: M ED 21:12
DX: T83.518A Infection and inflammatory reaction due to other urinary catheter, initial encounter (principal); N39.0 Urinary tract infection, site not specified; I10 Essential (primary) hypertension; F41.9 Anxiety disorder, unspecified; F32.A Depression, unspecified; J45.909 Unspecified asthma, uncomplicated; F17.200 Nicotine dependence, unspecified, uncomplicated; F12.10 Cannabis abuse, uncomplicated; Z88.0 Allergy status to penicillin; Z91.040 Latex allergy status; Z79.52 Long term (current) use of systemic steroids; Z79.810 Long term (current) use of selective estrogen receptor modulators (SERMs); Z79.899 Other long term (current) drug therapy

== ENCOUNTER 2023-03-04 18:30 | Observation (INO) | payer OTHER ==
[~2023-03-04] VITALS: Ht 170.2 cm; Wt 123.6 kg
[~2023-03-04 18:30] MED LIST changes: +ARIP1TAB6 PO; +BACT800T5 PO; +CITA20TA6 PO; +DOXY100T PO; +LEVO1TAB38 PO; +ONDA4TAB6 PO; +PANT-23 PO; +PREG25CA2 PO
[2023-03-04 19:08] LABS: BASO # 0.1 10^3/uL (0.0-0.2); BASO % 0.7 % (0.0-1.0); EOS % 0.1 % (0.0-3.0); LYMPH # 1.2 10^3/uL (1.5-5.0); LYMPH % 16.9 % (24.0-44.0); MEAN CORPUSCULAR HEMOGLOBIN 28.1 pg (27.0-33.0); MEAN CORPUSCULAR HGB CONC 31.6 g/dl (32.0-36.5); MONO # 0.5 10^3/uL (0.0-0.8); MONO % 6.7 % (2.0-8.0); NEUTROPHILS # 5.4 10^3/uL (1.5-8.5); NEUTROPHILS % 75.3 % (36.0-66.0); PLATELET COUNT, AUTOMATED 315 10^3/uL (150-450); RED BLOOD COUNT 4.27 10^6/uL (4.00-5.40); WHITE BLOOD COUNT 7.2 10^3/uL (4.0-10.0)
[2023-03-04 19:33] LABS: AMPHETAMINES LEVEL URINE NEGATIVE (NEGATIVE); BARBITURATES URINE NEGATIVE (NEGATIVE); COCAINE METABOLITE URINE NEGATIVE (NEGATIVE); METHADONE URINE NEGATIVE (NEGATIVE); OPIATES URINE NEGATIVE (NEGATIVE); PHENCYCLIDINE URINE NEGATIVE (NEGATIVE)
[2023-03-04 19:34] LABS: BENZODIAZEPINES URINE NEGATIVE (NEGATIVE)
[2023-03-04 19:35] LABS: CANNABINOIDS URINE POSITIVE (NEGATIVE)
[2023-03-04 19:35] LABS: ETHYL ALCOHOL (ETHANOL) 0.005 % (0.000-0.010)
[2023-03-04 19:37] LABS: ALBUMIN 3.4 G/DL (3.2-5.2); ALKALINE PHOSPHATASE 123 U/L (46-116); ALT/SGPT 15 U/L (7.0-40); AST/SGOT 12 U/L (<34); BILIRUBIN,DIRECT 0.1 MG/DL (<0.4); BILIRUBIN,TOTAL 0.3 MG/DL (0.3-1.2); BLOOD UREA NITROGEN 8 MG/DL (9-23); CALCIUM LEVEL 8.6 MG/DL (8.5-10.1); CARBON DIOXIDE LEVEL 22 MMOL/L (20-31); CHLORIDE LEVEL 110 MMOL/L (98-107); CREATININE FOR GFR 0.62 MG/DL (0.55-1.30); GLOMERULAR FILTRATION RATE > 60.0 (>60); GLUCOSE, FASTING 99 MG/DL (60-100); POTASSIUM SERUM 3.8 MMOL/L (3.5-5.1); SALICYLATE LEVEL < 3.0 MG/DL (<30); SODIUM LEVEL 143 MMOL/L (136-145); TOTAL PROTEIN 6.7 G/DL (5.7-8.2)
[2023-03-04 19:38] LABS: ACETAMINOPHEN LEVEL < 2.0 UG/ML (10.0-20.0)
[2023-03-04 19:40] LABS: THYROID STIMULATING HORMONE 0.449 uIU/ML (0.55-4.78)
[2023-03-04 19:41] LABS: CPK CREATINE PHOSPHOKINASE 74 U/L (34-145)
[2023-03-04 19:46] LABS: RSV AMPLIFICATION NEGATIVE (NEGATIVE)
[2023-03-04] MEDS ORDERED: LORazepam 2 MG/ML 1ML VIAL IV STA (20:03)
[2023-03-04 20:07] LABS: HCG, SERUM QUALITATIVE NEGATIVE (NEGATIVE)
[2023-03-04] MEDS ORDERED: NS 1,000 ML IV SCH (23:45)
[2023-03-04] MEDS ORDERED: ALBUTEROL SULFATE 2.5MG/0.5ML INH NEB SOLN NEB PRN (23:45)
[2023-03-05] MEDS ORDERED: MED REC CURRENTLY UNOBTAINABLE XX SCH (02:30)
[2023-03-05] MEDS ORDERED: PREG25CA PO (06:53)
[2023-03-05] MEDS ORDERED: IBUP1TAB6 PO (06:53)
[2023-03-05] MEDS ORDERED: DOXY100C3 PO (06:53)
[2023-03-05] MEDS ORDERED: ACET-897 PO (06:53)
[2023-03-05] MEDS ORDERED: HYDR50TA70 PO (06:53)
[2023-03-05] MEDS ORDERED: HOME MED LIST COMPLETE! XX SCH (06:55)
[2023-03-05 08:10] LABS: FREE T4 1.09 NG/DL (0.89-1.76); THYROID STIMULATING HORMONE 0.607 uIU/ML (0.55-4.78)
[2023-03-05 08:25] LABS: BLOOD UREA NITROGEN 10 MG/DL (9-23); CALCIUM LEVEL 8.6 MG/DL (8.5-10.1); CARBON DIOXIDE LEVEL 23 MMOL/L (20-31); CHLORIDE LEVEL 111 MMOL/L (98-107); CREATININE FOR GFR 0.75 MG/DL (0.55-1.30); GLOMERULAR FILTRATION RATE > 60.0 (>60); GLUCOSE, FASTING 71 MG/DL (60-100); PHOSPHORUS LEVEL 3.7 MG/DL (2.5-4.9); POTASSIUM SERUM 4.3 MMOL/L (3.5-5.1); SODIUM LEVEL 146 MMOL/L (136-145)
[2023-03-05] MEDS ORDERED: PANTOPRAZOLE 40MG VIAL IV SCH (09:00)
[2023-03-05 09:24] LABS: MAGNESIUM LEVEL 2.1 MG/DL (1.8-2.4)
[2023-03-05] MEDS ORDERED: HEPARIN SOD (PORCINE) 5000UNITS/ML 1ML VIAL/SYRINGE SQ SCH (14:00)
[2023-03-05 16:41] VITALS: BP 119/59; TEMP 96.2; O2SAT 100
== END 2023-03-05 16:42 | disposition home or self-care (01) ==
LOC: M ED 18:30 → EDBD 18:30 → M ED INP 18:31
PROVIDERS: ADMIT Internal Medicine; ATTEND Internal Medicine
DX: T42.6X2A Poisoning by other antiepileptic and sedative-hypnotic drugs, intentional self-harm, initial encounter (principal); T14.91XA Suicide attempt, initial encounter; Y92.89 Other specified places as the place of occurrence of the external cause; F29 Unspecified psychosis not due to a substance or known physiological condition; F41.9 Anxiety disorder, unspecified; F32.A Depression, unspecified; Z79.899 Other long term (current) drug therapy; L73.2 Hidradenitis suppurativa; Z91.040 Latex allergy status; Z88.0 Allergy status to penicillin
CPT/HCPCS: 36415; 80048; 80076; 80143; 80307; 82077; 82550; 83735; 84100; 84439; 84443; 84703; 85025; 87631; 93005; 93041; 94760; 96374; 96375; 99285; C9113; J2060

== ENCOUNTER 2023-07-11 09:00 | Emergency (ER) | payer OTHER ==
[~2023-07-11] VITALS: Ht 170.2 cm; Wt 125.8 kg
[~2023-07-11 09:00] MED LIST changes: +ACET-897 PO; +DOXY100C3 PO; +MECL-209 PO; -MECL1TAB31 PO; -PREG25CA2 PO; +PREG25CA3 PO
[2023-07-11 09:01] VITALS: BP 114/65; TEMP 97.5; O2SAT 100
== END 2023-07-11 13:22 | disposition left against medical advice (07) ==
LOC: M ED 12:03
DX: Z53.21 Procedure and treatment not carried out due to patient leaving prior to being seen by health care provider (principal)

== ENCOUNTER → 2023-07-15 | Outpatient (CLI) | payer OTHER | LOC: M LAB 12:55 | PROVIDERS: ATTEND Nurse Practitioner Family | DX: Z33.1 Pregnant state, incidental (principal) ==

== ENCOUNTER → 2023-09-13 | Outpatient (CLI) | payer OTHER ==
[2023-09-13 13:46] LABS: HEMATOCRIT 36.5 % (36.0-47.0); HEMOGLOBIN 11.9 g/dl (12.0-15.5); MEAN CORPUSCULAR HEMOGLOBIN 28.9 pg (27.0-33.0); MEAN CORPUSCULAR HGB CONC 32.6 g/dl (32.0-36.5); MEAN CORPUSCULAR VOLUME 88.6 fl (80.0-96.0); PLATELET COUNT, AUTOMATED 252 10^3/uL (150-450); RED BLOOD COUNT 4.12 10^6/uL (4.00-5.40); WHITE BLOOD COUNT 6.4 10^3/uL (4.0-10.0)
[2023-09-13 15:13] LABS: HIV 1&2 SCREEN NEGATIVE (NEGATIVE)
[2023-09-13 15:22] LABS: HEPATITIS C VIRUS ABY INDEX 0.02 INDEX (<0.8)
[2023-09-13 15:22] LABS: CHLAMYDIA DNA AMPLIFICATION NEGATIVE (NEGATIVE); GC DNA AMPLIFICATION NEGATIVE (NEGATIVE)
== END ==
LOC: M LAB 12:50
PROVIDERS: ATTEND Specialist
DX: Z34.81 Encounter for supervision of other normal pregnancy, first trimester (principal)

== ENCOUNTER → 2023-09-13 | Outpatient (CLI) | payer OTHER | LOC: M LAB 12:47 | PROVIDERS: ATTEND Obstetrics & Gynecology | DX: Z34.80 Encounter for supervision of other normal pregnancy, unspecified trimester (principal) ==

== ENCOUNTER → 2023-09-28 | Outpatient (CLI) | payer OTHER ==
[~2023-09-28] MED LIST changes: -MIRA1POW3 PO; +MIRA33506 PO
== END ==
LOC: M LAB 13:59
PROVIDERS: ATTEND Advanced Practice Midwife
DX: Z34.80 Encounter for supervision of other normal pregnancy, unspecified trimester (principal)

== ENCOUNTER 2023-10-25 22:09 | Emergency (ER) | payer OTHER ==
[~2023-10-25] VITALS: Ht 170.2 cm; Wt 124.7 kg
[2023-10-25 22:10] VITALS: BP 123/64; TEMP 99.1; O2SAT 98
== END 2023-10-25 23:27 | disposition admitted as inpatient to this hospital (09) ==
LOC: M ED 22:09
DX: Z53.21 Procedure and treatment not carried out due to patient leaving prior to being seen by health care provider (principal)

== ENCOUNTER 2023-10-25 22:51 | Inpatient (IN) | payer OTHER ==
[~2023-10-25] VITALS: Ht 170.2 cm; Wt 125.1 kg
[2023-10-25 23:01] VITALS: BP 116/73; O2SAT 99
[2023-10-25] MEDS ORDERED: METHYLERGONOVINE MALEATE 0.2MG/ML 1ML VIAL IM PRN (23:50)
[2023-10-25] MEDS ORDERED: TRANEXAMIC ACID INJection 1,000 MG in NS 100 ML IV PRN (23:50)
[2023-10-25] MEDS ORDERED: LIDOCAINE 1% MDV 20ML VIAL INFIL PRN (23:50)
[2023-10-25] MEDS ORDERED: CARBOPROST TROMETHAMINE 250 MCG/ML AMP IM PRN (23:50)
[2023-10-25] MEDS ORDERED: OXYTOCIN INJ 10UNITS/ML 1ML VIAL IM PRN (23:50)
[2023-10-25] MEDS ORDERED: OXYTOCIN DRIP 30 UNITS in IV 1 EA IV PRN (23:50)
[2023-10-26] VITALS (15 sets, daily range): BP systolic 91–118; BP diastolic 48–62
[2023-10-26] MEDS ORDERED: HOME MED LIST COMPLETE! XX SCH (00:10)
[2023-10-26 00:11] LABS: HEMATOCRIT 36.5 % (36.0-47.0); HEMOGLOBIN 12.1 g/dl (12.0-15.5); MEAN CORPUSCULAR HEMOGLOBIN 29.6 pg (27.0-33.0); MEAN CORPUSCULAR HGB CONC 33.2 g/dl (32.0-36.5); MEAN CORPUSCULAR VOLUME 89.2 fl (80.0-96.0); PLATELET COUNT, AUTOMATED 276 10^3/uL (150-450); RED BLOOD COUNT 4.09 10^6/uL (4.00-5.40); WHITE BLOOD COUNT 7.4 10^3/uL (4.0-10.0)
[2023-10-26 01:30] LABS: INR 1.08; PARTIAL THROMBOPLASTIN TIME 28.3 SECONDS (24.8-34.2); PROTHROMBIN TIME 13.7 SECONDS (12.5-14.5)
[2023-10-26 01:41] LABS: AMPHETAMINES URINE REFLEX NEGATIVE (NEGATIVE); BARBITURATES URINE REFLEX NEGATIVE (NEGATIVE); BENZODIAZEPINES URINE REFLEX NEGATIVE (NEGATIVE); COCAINE METABOLITE URINE REFLE NEGATIVE (NEGATIVE); METHADONE URINE REFLEX NEGATIVE (NEGATIVE); OPIATES URINE REFLEX NEGATIVE (NEGATIVE); PHENCYCLIDINE URINE REFLEX NEGATIVE (NEGATIVE)
[2023-10-26 04:21] LABS: CANNABINOIDS URINE REFLEX PENDING CONFIRMATION (NEGATIVE)
[2023-10-26] MEDS: LACTATED RINGER'S 1000 ML IV STA (09:03)
[2023-10-27 00:21] VITALS: BP 123/74
[2023-10-27 01:56] VITALS: BP 115/69
[2023-10-27] MEDS ORDERED: IBUPROFEN 600MG TAB PO PRN (02:10)
[2023-10-27] MEDS ORDERED: ACETAMINOPHEN 500 MG TAB PO PRN (02:10)
[2023-10-27] MEDS ORDERED: DIBUCAINE 1% OINTMENT 30GM TOP PRN (02:10)
[2023-10-27] MEDS ORDERED: ACETAMINOPHEN TAB 650MG DOSE (2X325MG) PO PRN (02:10)
[2023-10-27] MEDS ORDERED: METHYLERGONOVINE MALEATE 0.2 MG TAB PO PRN (02:10)
[2023-10-27] MEDS ORDERED: IBUPROFEN 800 MG TAB PO PRN (02:10)
[2023-10-27 02:15] VITALS: BP 121/62
[2023-10-27 02:44] VITALS: BP 106/55
[2023-10-27] MEDS: RHOGAM 300MCG (1500IU) INJ IM SCH (03:41)
[2023-10-27 05:01] VITALS: BP 104/53
[2023-10-27] MEDS ORDERED: ACET1TAB55 PO (07:09)
[2023-10-27] MEDS ORDERED: IBUP-1022 PO (07:09)
[2023-10-27 08:50] VITALS: BP 116/67
[2023-10-28 12:09] LABS: Cannabinoid Positive (.); Carboxy THC Conf, MS, UR >300 ng/mL (Cutoff=10)
[2023-10-29] MEDS ORDERED: MEASLES,MUMPS,RUBELLA VACCINE INJ (MMR-II) SC.IMMUN ONE (09:00)
== END 2023-10-27 10:40 | disposition home or self-care (01) | DRG 564 ==
LOC: M LDI 22:51
PROVIDERS: ADMIT Advanced Practice Midwife; ATTEND Advanced Practice Midwife
PROC: 3E0DXGC Introduction of Other Therapeutic Substance into Mouth and Pharynx, External Approach (ICD-10-PCS; principal; 2023-10-25)
DX: O02.1 Missed abortion (principal); Z88.0 Allergy status to penicillin; Z91.040 Latex allergy status

== ENCOUNTER → 2024-07-03 | Outpatient (REF) | payer OTHER ==
[~2024-07-03] MED LIST changes: +DOXY-440 PO; -DOXY-444 PO; +IBUP-1022 PO; +ONDA-282 PO; -ONDA4TAB6 PO
== END ==
LOC: M LAB REF 16:45
PROVIDERS: ATTEND Physician Assistant
DX: N64.52 Nipple discharge (principal); N63.20 Unspecified lump in the left breast, unspecified quadrant; N64.4 Mastodynia

== ENCOUNTER → 2024-07-04 | Outpatient (CLI) | payer OTHER | LOC: M WHC 09:32 | PROVIDERS: ATTEND Physician Assistant | DX: N64.52 Nipple discharge (principal); N61.1 Abscess of the breast and nipple ==

== ENCOUNTER → 2024-08-31 | Outpatient (CLI) | payer OTHER ==
[2024-08-31 17:26] LABS: HEMOGLOBIN 11.2 g/dl (12.0-15.5); MEAN CORPUSCULAR HEMOGLOBIN 28.5 pg (27.0-33.0); MEAN CORPUSCULAR VOLUME 89.1 fl (80.0-96.0); PLATELET COUNT, AUTOMATED 267 10^3/uL (150-450); RED BLOOD COUNT 3.93 10^6/uL (4.00-5.40); WHITE BLOOD COUNT 7.3 10^3/uL (4.0-10.0)
[2024-08-31 17:59] LABS: ALBUMIN 2.9 G/DL (3.2-5.2); ALKALINE PHOSPHATASE 111 U/L (35-104); ALT/SGPT 34 U/L (7.0-40); AST/SGOT 25 U/L (<34); BILIRUBIN,TOTAL 0.2 MG/DL (0.3-1.2); BLOOD UREA NITROGEN 6 MG/DL (9-23); CALCIUM LEVEL 8.6 MG/DL (8.5-10.1); CARBON DIOXIDE LEVEL 22 MMOL/L (20-31); CHLORIDE LEVEL 109 MMOL/L (98-107); CREATININE FOR GFR 0.56 MG/DL (0.55-1.30); GLOMERULAR FILTRATION RATE > 60.0 (>60); GLUCOSE, FASTING 81 MG/DL (60-100); POTASSIUM SERUM 4.3 MMOL/L (3.5-5.1); SODIUM LEVEL 139 MMOL/L (136-145); TOTAL PROTEIN 6.4 G/DL (5.7-8.2)
[2024-08-31 18:24] LABS: HIV 1&2 SCREEN NEGATIVE (NEGATIVE)
[2024-08-31 18:32] LABS: HEPATITIS C VIRUS ABY INDEX < 0.02 INDEX (<0.8)
== END ==
LOC: M PLALAB 11:58
PROVIDERS: ATTEND Obstetrics & Gynecology
DX: Z34.91 Encounter for supervision of normal pregnancy, unspecified, first trimester (principal); Z3A.00 Weeks of gestation of pregnancy not specified

== ENCOUNTER → 2024-09-26 | Outpatient (REF) | payer OTHER ==
[2024-09-26 17:51] LABS: TOTAL PROTEIN,RANDOM URINE 60.9 MG/DL (0.0-14.0)
[2024-09-26 18:14] LABS: CREATININE,RANDOM URINE 386.6 MG/DL
[2024-09-26 20:59] LABS: GC DNA AMPLIFICATION NEGATIVE (NEGATIVE)
== END ==
LOC: M SFHCWAGY 17:06
PROVIDERS: ATTEND Obstetrics & Gynecology
DX: Z34.91 Encounter for supervision of normal pregnancy, unspecified, first trimester (principal)

== ENCOUNTER → 2024-10-16 | Outpatient (CLI) | payer OTHER | LOC: M WHC 07:05 | PROVIDERS: ATTEND Obstetrics & Gynecology | DX: Z36.89 Encounter for other specified antenatal screening (principal) ==

== ENCOUNTER → 2025-01-31 | Outpatient (REF) | payer OTHER ==
[~2025-01-31] MED LIST changes: +ASPI-226 PO; +MULTTAB20 PO; -PREG25CA PO; +PREG25CA63 PO; +REGL10TA6 PO
== END ==
LOC: M SFHCWAGY 10:06
PROVIDERS: ATTEND Obstetrics & Gynecology
DX: Z36.85 Encounter for antenatal screening for Streptococcus B (principal); Z3A.36 36 weeks gestation of pregnancy

== ENCOUNTER 2025-02-03 23:06 | Outpatient (CLI) | payer OTHER ==
[~2025-02-03] VITALS: Ht 170.2 cm; Wt 128.8 kg
[~2025-02-03 23:06] MED LIST changes: -ASPI-226 PO; -MULTTAB20 PO; -REGL10TA6 PO
[2025-02-03 23:20] VITALS: BP 107/59
[2025-02-03] MEDS ORDERED: ASPI-226 PO (23:26)
[2025-02-03] MEDS ORDERED: MULTTAB20 PO (23:26)
[2025-02-03 23:27] VITALS: BP 107/59; TEMP 98.3
[2025-02-03] MEDS ORDERED: HOME MED LIST COMPLETE! XX SCH (23:35)
[2025-02-03 23:50] VITALS: BP 110/62
[2025-02-03 23:54] VITALS: TEMP 98.1; O2SAT 98
[2025-02-03] MEDS: FIORICET TAB PO ONE (23:54)
[2025-02-04 00:10] VITALS: BP 108/66
[2025-02-04 00:31] VITALS: BP 101/64
[2025-02-04] MEDS: PROMETHAZINE 25MG/ML 1ML VIAL IV ONE (01:36)
[2025-02-04] MEDS: LR 1,000 ML IV ONE (01:37)
[2025-02-04] MEDS: MORPHINE 10 MG/ML 1 ML VIAL IV ONE (03:02)
[2025-02-04 03:05] VITALS: BP 113/68
[2025-02-04 03:35] LABS: PLATELET COUNT, AUTOMATED 270 10^3/uL (150-450)
[2025-02-04 04:33] LABS: ALT/SGPT 11 U/L (7.0-40); AST/SGOT 18 U/L (<34); CALCIUM LEVEL 9.0 MG/DL (8.5-10.1); CARBON DIOXIDE LEVEL 24 MMOL/L (20-31); CHLORIDE LEVEL 106 MMOL/L (98-107); CREATININE FOR GFR 0.59 MG/DL (0.55-1.30); GLOMERULAR FILTRATION RATE > 90.0 (>60); POTASSIUM SERUM 4.4 MMOL/L (3.5-5.1); SODIUM LEVEL 137 MMOL/L (136-145)
[2025-02-04 05:12] LABS: TOTAL PROTEIN,RANDOM URINE 29.7 MG/DL (0.0-14.0)
[2025-02-04] MEDS ORDERED: REGL10TA6 PO (06:28)
== END 2025-02-04 06:22 | disposition home or self-care (01) ==
LOC: M LDO 23:06
PROVIDERS: ATTEND Obstetrics & Gynecology
DX: O26.893 Other specified pregnancy related conditions, third trimester (principal); O26.23 Pregnancy care for patient with recurrent pregnancy loss, third trimester; R51.9 Headache, unspecified; Z3A.36 36 weeks gestation of pregnancy
CPT/HCPCS: 36415; 59025; 80053; 82570; 84156; 85027; 96374; 96375; G0463; J2550

== ENCOUNTER → 2025-02-15 | Outpatient (CLI) | payer OTHER ==
[~2025-02-15] MED LIST changes: +ASPI-226 PO; +MULTTAB20 PO; +REGL10TA6 PO
== END ==
LOC: M WHC 06:44
PROVIDERS: ATTEND Obstetrics & Gynecology
DX: O99.213 Obesity complicating pregnancy, third trimester (principal); Z3A.38 38 weeks gestation of pregnancy

== ENCOUNTER → 2025-04-18 | Outpatient (REF) | payer OTHER ==
[~2025-04-18] MED LIST changes: -IBUP-1022 PO; -IBUP1TAB6 PO; +IBUP600T42 PO; +SFHIBU600 PO
[2025-04-18 16:28] LABS: Trichomonas vaginalis (AMP) NOT DETECTED (NEGATIVE)
[2025-04-18 16:51] LABS: GC DNA AMPLIFICATION NEGATIVE (NEGATIVE)
== END ==
LOC: M PLALAB 14:01
PROVIDERS: ATTEND Obstetrics & Gynecology
DX: Z11.3 Encounter for screening for infections with a predominantly sexual mode of transmission (principal)